=== PATIENT | male | born 1970 | race Caucasian/White ===

== ENCOUNTER 2018-01-23 11:01 | Emergency (ER) | payer BC ==
--- NOTE | 2018-01-23 14:09 | ER ---
Nurse's Notes [facility] Name: Mino Torres Age: 47 yrs Sex: Male : 1970 Arrival Date: 01/23/2018 Time: 11:05 Bed Waiting Private MD: Karthik Messina Diagnosis: Presentation: 01/23 11:26 Presenting complaint: Patient states: "my whole abdomen feel bloated and my last normal aa5 bowel movement was about 3 days ago". Pt reports nausea, denies vomiting. Transition of care: patient was not received from another setting of care. Onset of symptoms was January 2018. Risk Assessment: Do you want to hurt yourself or someone else? Patient reports no desire to harm self or others. Initial Sepsis Screen: Does the patient meet any 2 criteria? No. Patient's initial sepsis screen is negative. Does the patient have a suspected source of infection? No. Patient's initial sepsis screen is negative. Care prior to arrival: None. 11:26 Method Of Arrival: Ambulatory aa5 11:26 Acuity: ROOPA 3 aa5 Historical: - Allergies: 11:28 No Known Allergies; aa5 - PMHx: 11:28 Hyperlipidemia; aa5 - PSHx: 11:28 Cholecystectomy; deviated septum repair; L thumb; aa5 - Immunization history:: Adult Immunizations unknown. - Social history:: Smoking status: Patient/guardian denies using tobacco. - Ebola Screening: : No symptoms or risks identified at this time. Vital Signs: 11:28 BP 156 / 94; Pulse 95; Resp 18 S; Temp 100.1(O); Pulse Ox 98% on R/A; Weight 114.76 kg aa5 (R); Height 5 ft. 8 in. (172.72 cm) (R); Pain 7/10; 11:28 Body Mass Index 38.47 (114.76 kg, 172.72 cm) aa5 ED Course: 11:05 Patient arrived in ED. mr 11:06 Karthik Messina MD is Private Physician. mr 11:27 Triage completed. aa5 11:27 Arm band placed on. aa5 13:18 Patient's name was called from ER lobby. No response. aa5 13:40 Patient's name was called from ER lobby. No response. aa5 14:08 Jah Mccoy MD is Attending Physician. aa5 14:08 Patient's name was called from [facility]. No response. aa5 Administered Medications: No medications were administered Outcome: 14:08 Patient left the ED. aa5 Signatures: Cristina Austin SurendraPaula, RN RN aa5
== END 2018-01-23 14:08 | disposition left against medical advice (07) ==
LOC: ER 11:01
DX: Z53.21 Procedure and treatment not carried out due to patient leaving prior to being seen by health care provider (principal)
CPT/HCPCS: 99281

== ENCOUNTER 2022-02-08 12:00 | Observation (INO) | payer BC ==
--- OUTSIDE RECORDS SUMMARY | 2022-02-08 12:04 | XMS REPORT | Clinical Summary ---
:1970 Author Organization [facility] Address [address] [place] [address] Care Team Providers Name Role Phone Ela Soto MD Unavailable Allergies Active Allergy Reactions Severity Noted Date Comments Hydrocodone-Acetaminophen GI Intolerance Medium 11/21/2020 nausea Medications Medication Sig Dispensed Refills Start End Status Date Date sertraline Take 200 mg by 0 08/15/19 Acti ve (ZOLOFT) 100 mg mouth daily. 21 tablet levETIRAcetam Take 1 tablet 60 tablet 2 12/12/19 Ac tive (KEPPRA) 1000 mg (1,000 mg) by 21 tabletIndications: mouth every 12 Glioblastoma (twelve) hours. multiforme amLODIPine Take 1 tablet (5 30 tablet 2 12/12/19 Ac tive (NORVASC) 5 mg mg) by mouth 21 tabletIndications: daily. Glioblastoma multiforme dronabinol Take 1 capsule (5 90 capsule 0 12/12/19 Active (MARINOL) 5 mg mg) by mouth 3 21 capsuleIndications (three) times a : Glioblastoma day. multiforme, Other acute postoperative pain ondansetron Take 1 tablet 30 30 tablet 5 12/23/19 A ctive (ZOFRAN) 8 mg minutes prior to 21 tabletIndications: Temozolomide and Glioblastoma take 1 tablet multiforme every 8 hours as needed for nausea/vomiting. pantoprazole Take 1 tablet (40 30 tablet 2 12/29/19 Active (PROTONIX) 40 mg mg) by mouth 21 EC daily. tabletIndications: Glioblastoma multiforme, Headache traMADol (ULTRAM) Take 1 tablet (50 45 tablet 1 12/28/19 Active 50 mg mg) by mouth 21 tabletIndications: every 6 (six) Glioblastoma hours as needed multiforme, (headaches). Headache, Other acute postoperative pain methocarbamol Take 1 tablet 30 tablet 0 02/01/20 Ac tive (ROBAXIN) 500 mg (500 mg) by mouth 21 tabletIndications: every 8 (eight) Postoperative hours. wound infection butalbital-acetami Take 1 tablet by 30 tablet 0 02/01/20 Active nophen-caffeine mouth every 6 21 (FIORICET, ESGIC) (six) hours as 50 mg-325 mg-40 mg needed for tabletIndications: headaches. Postoperative wound infection levETIRAcetam Take 1 tablet 120 tablet 1 02/02/20 A ctive (KEPPRA) 1000 mg (1,000 mg) by 21 tabletIndications: mouth every 12 Glioblastoma (twelve) hours. multiforme sodium chloride Inject 10 mL (1 60 Syringe 0 02/29/20 Active (NS) 0.9% flush syringe) into 21 syringe 10 each lumen of mLIndications: central venous Postoperative catheter daily as wound infection directed. sodium chloride Inject 10 mL (1 28 Syringe 0 03/07/19 Active (NS) 0.9% flush syringe) into 22 syringe 10 each lumen of the mLIndications: catheter daily as Surgical site directed. infection <Subsequent> levoFLOXacin Take 1 tablet 30 tablet 0 03/06/19 Act binu (LEVAQUIN) 500 mg (500 mg) by mouth 22 tabletIndications: daily. Glioblastoma multiforme, Neutropenia, not otherwise specified gabapentin Take 3 capsules 270 capsule 0 01/30/20 E xpired (NEURONTIN) 300 mg (900 mg) by mouth 021 capsuleIndications 3 (three) times a : Other acute day for 30 days. postoperative pain linezolid (Zyvox) Take 1 tablet 32 tablet 0 02/01/20 600 mg (600 mg) by mouth tabletIndications: twice daily for Postoperative 16 days. wound infection sodium chloride Inject 10 mL (1 60 Syringe 1 02/01/20 Discontinued (NS) 0.9% flush syringe) into 021 (Reorder) syringe 10 each lumen of mLIndications: central venous Postoperative catheter daily as wound infection directed. oxacillin IV Infuse 1 eclipse pump (2000 mg) intravenously every 4 (four) hours as directed for 15 days. 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 apixaban (Eliquis Take 2 tablets by 74 tablet 0 02/16/2001/31 6 Discontinued DVT-PE Treat 30D mouth twice daily 021 (Reorder) Start) 5 mg (74 for 7 days, then tabs) take 1 tablet by tabletIndications: mouth twice daily Deep venous thereafter. thrombosis apixaban (Eliquis Take 2 tablets by 74 tablet 0 02/16/2003/03 0 Discontinued DVT-PE Treat 30D mouth twice daily 022 (Reorder) Start) 5 mg (74 for 7 days, then tabs) take 1 tablet by tabletIndications: mouth twice daily Deep venous thereafter. thrombosis sodium chloride Infuse 10 mL 228 each 0 02/20/20 D iscontinued (NS) 0.9% intravenously as (Ot her ) injection flush needed for line syringeIndications care. : Deep incisional surgical site infection <Subsequent>, Epidural abscess, Meningitis due to other specified cause, Infection due to Staphylococcus Coagulase negative oxacillin IV Infuse 2,000 mg 216 g 0 02/20/20 D iscontinued prescription (HOME intravenously 021 (Other ) USE)Indications: every 4 (four) Deep incisional hours for 18 surgical site days. infection <Subsequent>, Epidural abscess, Meningitis due to other specified cause, Infection due to Staphylococcus Coagulase negative oxacillin IV Infuse 1 eclipse pump (2000 mg) intravenously every 4 (four) hours for 14 days. 168 g 0 02/24/20 Discontinued prescription (HOME #18 eclipses 21 022 (Reorder) USE)Indications: Postoperative wound infection sodium chloride Inject 10 mL (1 28 Syringe 0 02/27/20 Discontinued (NS) 0.9% flush syringe) into 21 022 (Reorder) syringe 10 each lumen of the mLIndications: catheter daily as Surgical site directed. infection <Subsequent> valACYclovir Take 1 tablet 30 tablet 1 03/01/20 Exp ired (VALTREX) 500 mg (500 mg) by mouth 022 tabletIndications: daily for 30 Glioblastoma days. multiforme fluconazole Take 1 tablet 30 tablet 1 03/01/20 Expi red (DIFLUCAN) 200 mg (200 mg) by mouth 022 tabletIndications: daily for 30 Glioblastoma days. multiforme oxacillin IV Infuse 1 eclipse pump (2000 mg) intravenously every 4 (four) hours for 14 days. 168 g 0 03/07/19 prescription (HOME #18 eclipses 22 022 USE)Indications: Postoperative wound infection minocycline Take 1 capsule 60 capsule 0 03/08/19 Ex pired (MINOCIN) 100 mg (100 mg) by mouth 22 022 capsuleIndications twice daily for : Epidural abscess 30 days. apixaban (Eliquis Take 2 tablets by 74 tablet 0 03/13/1903/03 Discontinued DVT-PE Treat 30D mouth twice daily 22 022 (Therapy Start) 5 mg (74 for 7 days, then completed) tabs) take 1 tablet by tabletIndications: mouth twice daily Deep venous thereafter. thrombosis apixaban (Eliquis) Take 1 tablet (5 102 tablet 0 03/20/1912/02 5 mg mg) by mouth 22 022 tabletIndications: every 12 (twelve) Deep venous hours for 51 thrombosis days. 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 Overall he has done well with radiation and Temodar. He will finish on Friday. I did send Salome to his pharmacy to complete his course. He will be moving back to [place] and apparently has already arran migdalia follow-up at [facility]. We will be happy to provide assistance if he is back in [place] at any point. Other acute postoperative pain Encounters Date Type Specialty Care Team Description 03/20/2021 Hospital Encounter Vascular Access and Leo Bermudez MD Surgical site infection <Subsequent>; Procedures Rachel Coronado Encounter for a djustment and management of vascular access device JARAD Medrano 03/20/2021 Telemedicine Hematology Cooney Long-term use o f anticoagulants; Ray, Deep venous thr gisela Gresham MD 03/20/2021 Travel 03/16/2021 Telephone Infectious Diseases Yakelin Rico nt Parenteral Ashlyn Pyle RN Antimicrobial T herapy (OPAT) 03/16/2021 Refill Neuro-Oncology Mendez, Postoperative wound Tomas Nina RN infection 03/14/2021 Orders Only Infectious Diseases Cale Bermudez MD Surgic al site infection <Subsequent> (P rimary Dx) 03/12/2021 Refill Infectious Diseases Nas Deep umberto ous JARAD Lay thrombosis 03/12/2021 Telephone Infectious Diseases Nas, PICC/CVA D Removal JARAD Lay 03/09/2021 Hospital Encounter Kenny Mehta MD 03/09/2021 Refill Neurosurgery Kenny Mehta, Deep venous MD thrombosis 03/08/2021 Documentation Infectious Diseases Karla Rico Parenteral Ashlyn Pyle RN Antimicrobial T herapy (OPAT) 03/08/2021 Orders Only Infectious Diseases Cale Bermudez MD Epidur al abscess (Primary Dx) 03/08/2021 Telephone Infectious Diseases Nas, Appointm ent JARAD Lay 03/06/2021 Hospital Encounter Karin Torres MD 03/06/2021 Mobile Encounter Neuro-Oncology Debraa-Anne Quintanilla APN 03/06/2021 Orders Only Neuro-Oncology Orda-Socorro, Glioblastoma multiforme (Primary Dx); SOM Rodríguez Neutropenia, no t otherwise specified 03/06/2021 Refill Infectious Diseases Cale Bermudez MD Surgic al site infection <Subsequent>; Postoperative w ound infection 03/01/2021 Orders Only Neuro-Oncology Orda-Quintanilla, Anne, INSTRUMENTAL MUSIC TEACHER 03/01/2021 Documentation Infectious Diseases Jacky, Outpati ent Parenteral Ashlyn Pyle RN Antimicrobial T herapy (OPAT) 03/01/2021 Orders Only Neuro-Oncology Aleshia, Glioblastoma Radha N, multiforme (Carol gonzález PharmD Dx) 02/28/2021 Orders Only Neuro-Oncology Orda-Quintanilla, Postoperative wound Anne, INSTRUMENTAL MUSIC TEACHER infection 02/27/2021 Hospital Encounter Vascular Access and Coronado, Rachel En counter for Procedures M, RN adjustment and management of vascular access device 02/27/2021 Hospital Encounter Kenny Mehta MD 02/27/2021 Hospital Encounter Lab Orda-Quintanilla, Glioblast ambrose Anne, INSTRUMENTAL MUSIC TEACHER multiforme 02/27/2021 Orders Only Neuro-Oncology Sue Bryan NP 02/27/2021 Travel 02/26/2021 Telephone Infectious Diseases Nas, Medicati on Refill JARAD Lay 02/26/2021 Orders Only Infectious Diseases Jennifer Chirinos, Surgical site PA infection <Subsequent> (P rimary Dx) 02/26/2021 Orders Only Infectious Diseases Cordell Santos MD 02/23/2021 Hospital Encounter Karin Torres MD 02/23/2021 Refill Neuro-Oncology Orda-Quintanilla, Postoperative wound Anne, INSTRUMENTAL MUSIC TEACHER infection 02/21/2021 Refill Neurosurgery Manoj, Postoperative w ound STACY Guerin infection 02/19/2021 Documentation Aimee Nelson, JARAD 02/19/2021 Orders Only Infectious Diseases Bora Carlisle, Infect ion due to Staphylococcus Coagulase negative (Primary Dx); MD Karin Deep incisional surgical site infection <Subsequent>; Epidural absces s; Meningitis due to other specified cause; Postoperative w ound infection 02/16/2021 Hospital Encounter Truong Aranda NP 02/15/2021 Emergency Emergency Medicine Fracisco Billingsley umberto ous MD Dontrell thrombosis (Carol gonzález Dx) 02/15/2021 Telemedicine Infectious Diseases Cale Bermudez MD Epidur al abscess (Primary Dx); Postoperative i nfection <Initial>; Meningitis due to other specified cause; Deep incisional surgical site infection <Subsequent> 02/15/2021 Ancillary Procedure Radiology Kathe Villegas Swelli ng of upper arm MANUFACTURING TECH <Right side> 02/15/2021 Orders Only Hematology Eros Long-term use o f Ray, anticoagulants MD Mp (Primary Dx) 02/15/2021 Documentation Hematology Mp John MD 02/15/2021 Documentation Aimee Nelson RN 02/15/2021 Travel 02/14/2021 Hospital Encounter Vascular Access and Ronen Luu, Encounter for geophysical computer adjustment and management of vascular access device 02/14/2021 Ancillary Procedure Radiology Cortez Barrios, Postoper ative Noemi A, INSTRUMENTAL MUSIC TEACHER infection <Init ial> 02/14/2021 Hospital Encounter Lab Manoj, Lesion of brain Ameika, MANUFACTURING TECH 02/14/2021 Orders Only Neurosurgery Kathe Villegas, Swelling of u pper arm MANUFACTURING TECH <Right side> (P rimary Dx) 02/14/2021 Travel 02/13/2021 Orders Only Neuro-Oncology Orda-Quintanilla, Postoperative wound Anne, INSTRUMENTAL MUSIC TEACHER infection 02/13/2021 Refill Neurosurgery Kenny Mehta, Postoperative wound MD infection 02/12/2021 Follow-Up Infectious Diseases Cale Bermudez MD Postop erative infection <Init ial> 02/12/2021 Hospital Encounter Kenny Mehta MD 02/12/2021 Travel 02/12/2021 Refill Neurosurgery Manoj, Postoperative w ound Ameika, MANUFACTURING TECH infection 02/09/2021 Documentation Infectious Diseases Karla Rico ent Parenteral Ashlyn Pyle RN Antimicrobial T herapy (OPAT) 02/08/2021 Hospital Encounter Pain Medicine Richard Crump No Show MD after 02/08/2021 Immunizations Name Administration Dates Next Due Pfizer SARS-CoV-2 Vaccination (Purple Cap) 11/25/2020 Surgical History Surgery Date Site/Laterality Comments BRAIN SURGERY August2020 WA CRANIEC TREPHINE BONE FLP 12/07/2020 Head/Right Pro cedure: RIGHT TEMPORAL BRAIN TUMOR SUPRTENTOR CRANIOTOM Y FOR TUMOR RESECTION; Surge on: Kenny Mehta MD; Loca tion: MAIN OR; Service: YUMIKO ROSURGERY Medical devices from this surgery are in t he Medical Devices section. WA MICROSURG TQS REQ USE 12/07/2020 Right Procedu re: FLUORESCENCE OPERATING MICROSCOPE (COMFORT G UIDED RESECTION OF NEURAL TUMOR WITH OPERATING MICROS COPE; Surgeon: Kenny gonzalez MD; Location: MAIN O R; Service: NEUROSURGERY Medical devices from this surgery are in t he Medical Devices section. WA DIAGNOSTIC LUMBAR SPINAL 12/07/2020 Back/N/A Proc edure: DIAGNOSTIC PUNCTURE LUMBAR SPINAL PU NCTURE; Surgeon: Kenny gonzalez MD; Location: MAIN O R; Service: NEUROSURGERY Medical devices from this surgery are in t he Medical Devices section. WA STRTCTC CPTR ASSTD PX 12/07/2020 Right Procedu re: STEREOTACTIC CRANIAL INTRADURAL COMPUTER-ASSI STED CRANIAL INTRADURAL PROCE DURE; Surgeon: Kenny gonzalez MD; Location: MAIN O R; Service: NEUROSURGERY Medical devices from this surgery are in t Medical Devices section. WA DEBRIDEMENT SUBCUTANEOUS 01/09/2021 Right Proc edure: irrigation and TISSUE 20 SQ CM/< debridement of nonhealing surgical wound o f right scalp; Surgeon: Kenny Mehta MD; Loca tion: MAIN OR; Service: YUMIKO ROSURGERY Medical devices from this surgery are in t Medical Devices section. 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 airway pressure ventilatio n 2018 Gastric reflux 2002 Depressive disorder 2006 Anxiety 2006 Brain cancer 2020 Postoperative nausea and vomiting Family History Medical History Relation Name Comments Hepatitis Brother Relation Name Status Comments Brother Social History Tobacco Use Types Packs/Day Years Used Date Smoking Tobacco: Former Cigarettes 0 0 Smokeless Tobacco: Former Comments: 20 years ago Alcohol Use Standard Drinks/Week Comments Not Currently 0 (1 standard drink = 0.6 oz pure alcoho l) last drank 08/2016 Sex Assigned at Date Recorded Male 11/27/2020 8:09 AM CDT Job Start Date Occupation Industry Not on file Not on file Not on file Obstetrics History Last Filed Vital Signs Vital Sign Reading Time Taken Comments Blood Pressure 119/82 03/20/2021 12:14 PM DOUGHMAKER Pulse 64 03/20/2021 12:14 PM DOUGHMAKER Temperature 37 C (98.6 F) 02/15/2021 3:12 PM DOUGHMAKER Respiratory Rate 17 03/20/2021 12:14 PM DOUGHMAKER Oxygen Saturation 97% 03/20/2021 12:14 PM DOUGHMAKER Inhaled Oxygen Concentration - - Weight 87.7 kg (193 lb 5.5 oz) 02/15/2021 10:35 AM DOUGHMAKER Height 171.5 cm (5' 7.52") 02/14/2021 9:50 AM DOUGHMAKER Body Mass Index 29.82 02/14/2021 9:50 AM DOUGHMAKER Plan of Treatment Health Maintenance Due Date Last Done Comments COVID-19 Vaccination (2 - Pfizer risk series) 12/16/2020 Medical Devices Implanted Type Area Topstitcher Zigzag Device Shelf Model / Identifier Expiration Serial / Date Lot Patch Dura 3x3in Durepair Sub - Sn/A Implant Right: [employer] 04/30/2022 [id number] / Implanted: Qty: 1 on 12/07/2020 by Kenny Mehta MD at [facility] NG Cranial N/A / [id number] Patch Dura 3x3in Durepair Sub - [id number] Implant Right: [employer] 05/01/2023 [id number] / Implanted: Qty: 1 on 01/09/2021 by Kenny Mehta MD at [facility] Brain / [id number] Screw Matrixneuro 3mm Self Drilling Pkg 1 - [id number] Metalware Right: [employer] .[id number] / Implanted: Qty: 1 on 12/07/2020 by Kenny Mehta MD at [facility] NG Cranial / Ti Matrixneuro Screw Self-Dril Ling 4mm - [id number] Metalware Right: [employer] .[id number] / Implanted: Qty: 13 on 01/09/2021 by Diane Cristina MD a t [facility] Cranial / Duragen Plus 3in X 3in - [id number] Skin/Tissue Right: [employer] 06/01/2023 [id number] / Implanted: Qty: 1 on 12/07/2020 by Kenny Mehta MD at [facility] Brain LIFESCIENCES / SURG [id number] Procedures Procedure Name Priority Date/Time Associated Diagnosis Comme nts FRACTIONATED BILIRUBIN Routine 02/27/2021 8:39 Glioblastoma Re sults for this AM DOUGHMAKER multiforme procedure are i n the results section. TOTAL PROTEIN Routine 02/27/2021 8:39 Glioblastoma Results for this AM DOUGHMAKER multiforme procedure are i n the results section. ASPARTATE Routine 02/27/2021 8:39 Glioblastoma Results for this AMINOTRANSFERASE AM DOUGHMAKER multiforme procedure a re in the results section. ALANINE AMINOTRANSFERASE Routine 02/27/2021 8:39 Glioblastoma Results for this AM DOUGHMAKER multiforme procedure are i n the results section. ALKALINE PHOSPHATASE Routine 02/27/2021 8:39 Glioblastoma Resu lts for this AM DOUGHMAKER multiforme procedure are i n the results section. ALBUMIN LEVEL Routine 02/27/2021 8:39 Glioblastoma Results for this AM DOUGHMAKER multiforme procedure are i n the results section. CALCIUM LEVEL TOTAL Routine 02/27/2021 8:39 Glioblastoma Resul ts for this AM DOUGHMAKER multiforme procedure are i n the results section. .GLOMERULAR FILTRATION Routine 02/27/2021 8:39 Glioblastoma Re sults for this RATE AM DOUGHMAKER multiforme procedure are i n the results section. SERUM CREATININE Routine 02/27/2021 8:39 Glioblastoma Results for this AM DOUGHMAKER multiforme procedure are i n the results section. ELECTROLYTE PANEL Routine 02/27/2021 8:39 Glioblastoma Results for this AM DOUGHMAKER multiforme procedure are i n the results section. BLOOD UREA NITROGEN Routine 02/27/2021 8:39 Glioblastoma Resul ts for this AM DOUGHMAKER multiforme procedure are i n the results section. GLUCOSE LEVEL Routine 02/27/2021 8:39 Glioblastoma Results for this AM DOUGHMAKER multiforme procedure are i n the results section. MANUAL DIFFERENTIAL Routine 02/27/2021 8:39 Glioblastoma Resul ts for this AM DOUGHMAKER multiforme procedure are i n the results section. Results CBC Routine 02/27/2021 8:39 Glioblastoma Results for this AM DOUGHMAKER multiforme procedure are i n the results section. COMPREHENSIVE METABOLIC Routine 02/27/2021 8:39 Glioblastoma PANEL AM DOUGHMAKER multiforme COMPLETE BLOOD COUNT W/ Routine 02/27/2021 8:39 Glioblastoma DIFFERENTIAL AM DOUGHMAKER multiforme POC CHEM 8 Routine 02/15/2021 11:55 Results for this AM DOUGHMAKER procedure are i n the results section. POC VENOUS BLOOD GAS + Routine 02/15/2021 11:51 R esults for this LACTATE AM DOUGHMAKER procedure are i n the results section. MANUAL DIFFERENTIAL STAT 02/15/2021 11:42 Resu lts for this AM DOUGHMAKER procedure are i n the results section. Results CBC STAT 02/15/2021 11:42 Results for this AM DOUGHMAKER procedure are i n the results section. FRACTIONATED BILIRUBIN Now 02/15/2021 11:42 R esults for this AM DOUGHMAKER procedure are i n the results section. TOTAL PROTEIN Now 02/15/2021 11:42 Results fo r this AM DOUGHMAKER procedure are i n the results section. ASPARTATE Now 02/15/2021 11:42 Results for this AMINOTRANSFERASE AM DOUGHMAKER procedure a re in the results section. ALANINE AMINOTRANSFERASE Now 02/15/2021 11:42 Results for this AM DOUGHMAKER procedure are i n the results section. ALKALINE PHOSPHATASE Now 02/15/2021 11:42 Res ults for this AM DOUGHMAKER procedure are i n the results section. ALBUMIN LEVEL Now 02/15/2021 11:42 Results fo r this AM DOUGHMAKER procedure are i n the results section. CALCIUM LEVEL TOTAL Now 02/15/2021 11:42 Resu lts for this AM DOUGHMAKER procedure are i n the results section. .GLOMERULAR FILTRATION Now 02/15/2021 11:42 R esults for this RATE AM DOUGHMAKER procedure are i n the results section. SERUM CREATININE Now 02/15/2021 11:42 Results for this AM DOUGHMAKER procedure are i n the results section. ELECTROLYTE PANEL Now 02/15/2021 11:42 Result s for this AM DOUGHMAKER procedure are i n the results section. BLOOD UREA NITROGEN Now 02/15/2021 11:42 Resu lts for this AM DOUGHMAKER procedure are i n the results section. GLUCOSE LEVEL Now 02/15/2021 11:42 Results fo r this AM DOUGHMAKER procedure are i n the results section. APTT Now 02/15/2021 11:42 Results for this AM DOUGHMAKER procedure are i n the results section. PROTHROMBIN TIME Now 02/15/2021 11:42 Results for this AM DOUGHMAKER procedure are i n the results section. COMPLETE BLOOD COUNT W/ Now 02/15/2021 11:42 DIFFERENTIAL AM DOUGHMAKER PHOSPHORUS LEVEL Now 02/15/2021 11:42 Results for this AM DOUGHMAKER procedure are i n the results section. MAGNESIUM LEVEL Now 02/15/2021 11:42 Results for this AM DOUGHMAKER procedure are i n the results section. COMPREHENSIVE METABOLIC Now 02/15/2021 11:42 PANEL AM DOUGHMAKER COVID-19 (SARS-COV-2) Now 02/15/2021 11:42 Re sults for this ASYMPTOMATIC-LT AM DOUGHMAKER procedure ar e in the results section. US ARM VENOUS DOPPLER STAT 02/15/2021 9:35 Swelling of uppe r Results for this RIGHT AM DOUGHMAKER arm <Right side> procedure a re in the results section. CALCIUM IONIZED, VENOUS Routine 02/14/2021 12:26 Lesion of bra in Results for this PM DOUGHMAKER procedure are i n the results section. .GLOMERULAR FILTRATION Routine 02/14/2021 12:26 Lesion of brai n Results for this RATE PM DOUGHMAKER procedure are i n the results section. SERUM CREATININE Routine 02/14/2021 12:26 Lesion of brain Resu lts for this PM DOUGHMAKER procedure are i n the results section. ELECTROLYTE PANEL Routine 02/14/2021 12:26 Lesion of brain Res ults for this PM DOUGHMAKER procedure are i n the results section. BLOOD UREA NITROGEN Routine 02/14/2021 12:26 Lesion of brain R esults for this PM DOUGHMAKER procedure are i n the results section. GLUCOSE LEVEL Routine 02/14/2021 12:26 Lesion of brain Results for this PM DOUGHMAKER procedure are i n the results section. FRACTIONATED BILIRUBIN Routine 02/14/2021 12:26 Lesion of brai n Results for this PM DOUGHMAKER procedure are i n the results section. TOTAL PROTEIN Routine 02/14/2021 12:26 Lesion of brain Results for this PM DOUGHMAKER procedure are i n the results section. ASPARTATE Routine 02/14/2021 12:26 Lesion of brain Results for this AMINOTRANSFERASE PM DOUGHMAKER procedure a re in the results section. ALANINE AMINOTRANSFERASE Routine 02/14/2021 12:26 Lesion of br ain Results for this PM DOUGHMAKER procedure are i n the results section. ALKALINE PHOSPHATASE Routine 02/14/2021 12:26 Lesion of brain Results for this PM DOUGHMAKER procedure are i n the results section. ALBUMIN LEVEL Routine 02/14/2021 12:26 Lesion of brain Results for this PM DOUGHMAKER procedure are i n the results section. MANUAL DIFFERENTIAL Routine 02/14/2021 12:26 Lesion of brain R esults for this PM DOUGHMAKER procedure are i n the results section. Results CBC Routine 02/14/2021 12:26 Lesion of brain Results for this PM DOUGHMAKER procedure are i n the results section. BASIC METABOLIC PANEL, Routine 02/14/2021 12:26 Lesion of brai n CALCIUM IONIZED PM DOUGHMAKER HEPATIC FUNCTION PANEL Routine 02/14/2021 12:26 Lesion of brai n PM DOUGHMAKER COMPLETE BLOOD COUNT W/ Routine 02/14/2021 12:26 Lesion of bra in DIFFERENTIAL PM DOUGHMAKER MRI BRAIN W WO CONTRAST Routine 02/14/2021 10:36 Postoperative Results for this AM DOUGHMAKER infection <Initial> procedur e are in the results section. after 02/08/2021 Results .Serum Creatinine (02/27/2021 8:39 AM DOUGHMAKER)Only the most recent of3 resultswithin the time period is included. athologist Signature Creatinine 0.96 0.67 - 1.17 [facility] [facility] mg/dL DIAGNOSTIC CENTER Specimen Anatomical Collection Method Collection Time Receive d Time (Source) Location / / Volume Laterality Blood 02/27/2021 8:39 AM 8:50 DOUGHMAKER AM DOUGHMAKER Anne Vela APN LAB BLOOD ORDERABLES Performing Organization Address City/State/ZIP Code Phon e Number [facility] DIAGNOSTIC Unless otherwise noted, [place], [place] [address] CENTER all lab tests performed by: Division of Pathology and Laboratory Medicine [address] (ABNORMAL) .CBC (02/27/2021 8:39 AM DOUGHMAKER)Only the most recent of3 resultswithin the time period is included. Analysis Performed At Patho logist Time Signature WBC 1.7 (L) 4.0 - 11.0 [facility] K/uL DIAGNOSTIC CENTER RBC 4.29 (L) 4.50 - [facility] 6.00 M/uL DIAGNOSTIC CENTER Hgb 12.6 (L) 14.0 - [facility] 18.0 gm/dL DIAGNOSTIC CENTER Hct 38.7 (L) 40.0 - [facility] 54.0 % DIAGNOSTIC CENTER MCV 90 82 - 98 fL [facility] DIAGNOSTIC CENTER MCH 29.4 27.0 - [facility] 31.0 pg DIAGNOSTIC CENTER MCHC 32.6 31.0 - [facility] 36.0 gm/dL DIAGNOSTIC CENTER RDW-SD 42.2 35.1 - [facility] 46.3 fL DIAGNOSTIC CENTER RDW-CV 12.9 12.0 - [facility] 15.5 % DIAGNOSTIC CENTER Platelet count 233 140 - 440 [facility] K/uL DIAGNOSTIC CENTER MPV 8.9 4.0 - 10.4 [facility] DIAGNOSTIC CENTER INRBC 0.0 <=0.0 % [facility] Comment: The INRBC (instrument NRBC) value reflec ts the enumeration of nucleated red blood cells contained i n a 200uL sample of whole blood analyzed by the instrumen t. This value may differ from the NRBC value reported in a manual differential, which is based on a 100 cell differentia l. Specimen Anatomical Collection Method Collection Time Receive d Time (Source) Location / / Volume Laterality Blood 02/27/2021 8:39 AM 8:47 DOUGHMAKER AM DOUGHMAKER Anne Vela APN LAB BLOOD ORDERABLES Performing Organization Address City/State/ZIP Code Phon e Number [facility] DIAGNOSTIC Unless otherwise noted, [place], [place] [address] CENTER all lab tests performed by: Division of Pathology and Laboratory Medicine [facility]5 [facility] Glomerular Filtration Rate (02/27/2021 8:39 AM DOUGHMAKER)Only the most recent of3 resultswithin the time period is included. athologist Signature eGFR-AA 108 >=60 [place] [facility] mL/min/1.73 DIAGNOSTIC sq. m CENTER Comment: Normal eGFR: >= 60 mL/min/1.73 m2 Note: The eGFR is calculated using the C KD-EPI equation. The eGFR declines with age. eGFR <60 mL/min/1.73 m2 is considered as "decreased". This equation should only be used for patients 18 and older. According to the National Kidney Foundat ion's Kidney Disease Outcome Quality Initiative (KDOQI) classification and 2012 Kidney Disease Improving Global Outcomes (KDIGO) Clinical Practice Guideline, the stage of CKD should be categorized based on estimated GFR. Stage Description GFR mL/min/1. 73 m2 1 Normal or high GFR >=90 2 Mildly decreased GFR 60-89 3a Mildly to moderately decreased GFR 45-59 3b Moderately to severely decreased GFR 30-44 4 Severely decreased GFR 15-29 5 Kidney failure <15 eGFR-NEO 93 >=60 mL/min/1.73 sq. m [place] [facility] Comment: Normal eGFR: >= 60 mL/min/1.73 m2 Note: The eGFR is calculated using the C KD-EPI equation. The eGFR declines with age. eGFR <60 mL/min/1.73 m2 is considered as "decreased". This equation should only be used for patients 18 and older. According to the National Kidney Foundat ion's Kidney Disease Outcome Quality Initiative (KDOQI) classification and 2012 Kidney Disease Improving Global Outcomes (KDIGO) Clinical Practice Guideline, the stage of CKD should be categorized based on estimated GFR. Stage Description GFR mL/min/1. 73 m2 1 Normal or high GFR >=90 2 Mildly decreased GFR 60-89 3a Mildly to moderately decreased GFR 45-59 3b Moderately to severely decreased GFR 30-44 4 Severely decreased GFR 15-29 5 Kidney failure <15 Specimen Anatomical Collection Method Collection Time Receive d Time (Source) Location / / Volume Laterality Blood 02/27/2021 8:39 AM 8:50 DOUGHMAKER AM DOUGHMAKER Anne Vela APN LAB BLOOD ORDERABLES Performing Organization Address City/State/ZIP Code Phon e Number [place] [facility] Unless otherwise noted, [address] all lab tests performed by: Division of Pathology and Laboratory Medicine [address] [place] [address] Fractionated Bilirubin (02/27/2021 8:39 AM DOUGHMAKER)Only the most recent of3 results within the time period is included. athologist Signature Bili Total 0.3 <=1.2 mg/dL [place] [facility] Comment: Indocyanine Green (ICG) may cause falsel y elevated bilirubin results. Total and direct bilirubin must not be measured from samples containing indocyanine green. False elevation of total bilirubin can b e seen in patients with IgG concentrations above 28 g/L. Bili Direct <0.2 <=0.3 mg/dL [place] [facility] Comment: Indocyanine Green (ICG) may cau se falsely elevated bilirubin results. Total and direct bilirubin must not be measure d from samples containing indocyanine green. Bili Indirect See Note 0.0 - 0.9 mg/dL [place] [facility] Comment: Unable to calculate Indirect Bi lirubin result due to some parameters are outside reportable range Specimen Anatomical Collection Method Collection Time Receive d Time (Source) Location / / Volume Laterality Blood 02/27/2021 8:39 AM 8:50 DOUGHMAKER AM DOUGHMAKER Anne Vela APN LAB BLOOD ORDERABLES Performing Organization Address City/State/ZIP Code Phon e Number [facility] DIAGNOSTIC Unless otherwise noted, [place] [id number] [place] all lab tests performed by: Division of Pathology and Laboratory Medicine [address] (ABNORMAL) Differential (02/27/2021 8:39 AM DOUGHMAKER)Only the most recent of3 results within the time period is included. athologist Signature Neutrophil % 41.4 (L) 42.0 - [facility] 66.0 % DIAGNOSTIC CENTER Lymphocyte % 40.8 24.0 - [facility] 44.0 % DIAGNOSTIC CENTER Monocyte % 13.6 (H) 2.0 - 7.0 [facility] % DIAGNOSTIC CENTER Eosinophil % 3.0 1.0 - 4.0 [facility] % DIAGNOSTIC CENTER Basophil % 0.6 0.0 - 1.0 [facility] % DIAGNOSTIC CENTER IGRE % 0.6 (H) 0.0 - 0.4 [facility] % DIAGNOSTIC CENTER Comment: IGRE % count includes Metamyelo cytes, Myelocytes, and Promyelocytes. Neutrophil Abs 0.70 (L) 1.70 - 7.30 K/uL [facility] WILL [facility] Lymphocyte Abs 0.69 (L) 1.00 - 4.80 K/uL [place] MD [facility] Monocyte Abs 0.23 0.08 - 0.70 K/uL [place] [facility] Eosinophil Abs 0.05 0.04 - 0.40 K/uL [facility] Basophil Abs 0.01 0.00 - 0.10 K/uL [place] [facility] G[facility] DIAGNOSTIC [place] IG Abs 0.01 0.00 - 0.04 K/uL [place] MD ANNIE [facility] DIAGNOSTIC [place] Specimen Anatomical Collection Method Collection Time Receive d Time (Source) Location / / Volume Laterality Blood 02/27/2021 8:39 AM 8:47 DOUGHMAKER AM DOUGHMAKER Anne Vela APN LAB BLOOD ORDERABLES Performing Organization Address City/State/ZIP Code Phon e Number [facility] DIAGNOSTIC Unless otherwise noted, [address] all lab tests performed by: Division of Pathology and Laboratory Medicine [address] [place] [address] BUN (02/27/2021 8:39 AM DOUGHMAKER)Only the most recent of3 resultswithin the time period is included. athologist Signature BUN 7 6 - 23 [facility] mg/dL DIAGNOSTIC CENTER Specimen Anatomical Collection Method Collection Time Receive d Time (Source) Location / / Volume Laterality Blood 02/27/2021 8:39 AM 8:50 DOUGHMAKER AM DOUGHMAKER Anne Dumont-Quintanilla INSTRUMENTAL MUSIC TEACHER LAB BLOOD ORDERABLES Performing Organization Address City/[facility] Phon e Number [facility] DIAGNOSTIC Unless otherwise noted, [address] all lab tests performed by: Division of Pathology and Laboratory Medicine [address] [place] [address] ALT (02/27/2021 8:39 AM DOUGHMAKER)Only the most recent of3 resultswithin the time period is included. athologist [facility] ALT 17 <=41 U/L [facility] Specimen Anatomical Collection Method Collection Time Receive d Time (Source) Location / / Volume Laterality Blood 02/27/2021 8:39 AM 8:50 DOUGHMAKER AM DOUGHMAKER Anne Dumont-Quintanilla INSTRUMENTAL MUSIC TEACHER LAB BLOOD ORDERABLES Performing Organization Address City/[facility]/ZIP [facility] Phon e Number [facility] DIAGNOSTIC Unless otherwise noted, [address] all lab tests performed by: Division of Pathology and Laboratory Medicine [address] [place] [address] Aspartate Aminotransferase (02/27/2021 8:39 AM DOUGHMAKER)Only the most recent of3 resultswithin the time period is included. athologist Signature AST 17 <=40 U/L [facility] Specimen Anatomical Collection Method Collection Time Receive d Time (Source) Location / / Volume Laterality Blood 02/27/2021 8:39 AM 1 8:50 DOUGHMAKER AM DOUGHMAKER Anne Dumont-Quintanilla INSTRUMENTAL MUSIC TEACHER LAB BLOOD ORDERABLES Performing Organization Address City/[facility]/ZIP [facility] Phon e Number [facility] DIAGNOSTIC Unless otherwise noted, [address] all lab tests performed by: Division of Pathology and Laboratory Medicine [address] [place], [place] [address] Total Protein (02/27/2021 8:39 AM DOUGHMAKER)Only the most recent of3 resultswithin the time period is included. [facility] Total Protein 6.9 6.4 - 8.3 [facility] g/dL DIAGNOSTIC CENTER Specimen Anatomical Collection Method Collection Time Receive d Time (Source) Location / / Volume Laterality Blood 02/27/2021 8:39 AM 8:50 DOUGHMAKER AM DOUGHMAKER Anen Vela APN LAB BLOOD ORDERABLES Performing Organization Address City/[facility] Phon e Number [facility] DIAGNOSTIC Unless otherwise noted, [address] all lab tests performed by: Division of Pathology and Laboratory Medicine [address] [place], [place] [address] Alkaline Phosphatase (02/27/2021 8:39 AM DOUGHMAKER)Only the most recent of3 results within the time period is included. [facility] [place] Alk Phos 73 40 - 129 [facility] U/L DIAGNOSTIC CENTER Specimen Anatomical Collection Method Collection Time Receive d Time (Source) Location / / Volume Laterality Blood 02/27/2021 8:39 AM 8:50 DOUGHMAKER AM DOUGHMAKER Anne Vela APN LAB BLOOD ORDERABLES Performing Organization Address City/State/[facility] Phon e Number [facility] DIAGNOSTIC Unless otherwise noted, [place] [phone] [place] all lab tests performed by: Division of Pathology and Laboratory Medicine [facility]5 [place] [facility] Glucose Level (02/27/2021 8:39 AM DOUGHMAKER)Only the most recent of3 resultswithin the time period is included. [facility] Glucose Level 81 70 - 99 [facility] mg/dL DIAGNOSTIC CENTER Comment: Effective 09/27/15, the glucose reference intervals have been updated based on [place] [employer] guidelines (Standards of Medical Care in Diabetes 2016. Diabetes Care 2016; 39: S13-S22). Fasting blood glucose: Normal: 70-99 mg/dL Impaired fasting glucose (increased risk for diabetes or pre-diabetes): 100- 125 mg/dL Diabetes mellitus: >/=126 mg/dL Random blood glucose: Normal: 70-199 mg/dL Note: Random glucose >100 mg/dL is assoc iated with increased risk for diabetes Specimen Anatomical Collection Method Collection Time Receive d Time (Source) Location / / Volume Laterality Blood 02/27/2021 8:39 AM 8:50 DOUGHMAKER AM DOUGHMAKER Anne Ovallesuyen SOM LAB BLOOD ORDERABLES Performing Organization Address [facility] Phon e Number [facility] DIAGNOSTIC Unless otherwise noted, [address] all lab tests performed by: Division of Pathology and Laboratory Medicine [address] Calcium Level (02/27/2021 8:39 AM DOUGHMAKER)Only the most recent of2 resultswithin the time period is included. P athologist Signature Calcium Lvl 9.8 8.4 - 10.2 [facility] mg/dL [facility] Specimen Anatomical Collection Method Collection Time Receive d Time (Source) Location / / Volume Laterality Blood 02/27/2021 8:39 AM 8:50 DOUGHMAKER AM DOUGHMAKER Anne YadavQuintanilla INSTRUMENTAL MUSIC TEACHER LAB BLOOD ORDERABLES Performing Organization Address [facility] Phon e Number [facility] DIAGNOSTIC Unless otherwise noted, [address] all lab tests performed by: Division of Pathology and Laboratory Medicine [address] [facility] [facility] Albumin Level (02/27/2021 8:39 AM DOUGHMAKER)Only the most recent of3 resultswithin the time period is included. P athologist Signature Albumin Lvl 4.5 3.5 - 5.2 [facility] gm/dL [facility] Specimen Anatomical Collection Method Collection Time Receive d Time (Source) Location / / Volume Laterality Blood 02/27/2021 8:39 AM 8:50 DOUGHMAKER AM DOUGHMAKER Anne JuliaSlimeQuintanilla INSTRUMENTAL MUSIC TEACHER LAB BLOOD ORDERABLES Performing Organization Address City/[facility] Phon e Number [facility] DIAGNOSTIC Unless otherwise noted, [address] all lab tests performed by: Division of Pathology and Laboratory Medicine [address] Electrolyte Panel (02/27/2021 8:39 AM DOUGHMAKER)Only the most recent of3 resultswithin the time period is included. athologist Signature Sodium Lvl 140 136 - 145 [facility] mEq/L DIAGNOSTIC CENTER Potassium Lvl 4.4 3.5 - 5.1 [facility] mEq/L DIAGNOSTIC CENTER Chloride 105 98 - 107 [facility] mEq/L DIAGNOSTIC CENTER CO2 25 22 - 29 [facility] mEq/L DIAGNOSTIC CENTER Anion Gap 10 4 - 14 [facility] mEq/L DIAGNOSTIC CENTER Specimen Anatomical Collection Method Collection Time Receive d Time (Source) Location / / Volume Laterality Blood 02/27/2021 8:39 AM 8:50 DOUGHMAKER AM DOUGHMAKER Anne Vela APN LAB BLOOD ORDERABLES Performing Organization Address City/State/ZIP Code Phon e Number [facility] DIAGNOSTIC Unless otherwise noted, [place], [place] [address] CENTER all lab tests performed by: Division of Pathology and Laboratory Medicine [address] [facility] (ABNORMAL) POC Chem 8 without Hemoglobin and Hematocrit (02/15/2021 11:55 AM DOUGHMAKER) athologist Signature POC NA 141 138 - 146 [facility] mEq/L POC K 3.6 3.5 - 4.9 [facility] mEq/L Comment: Method description: The i-STAT is an nitish lyzer used for in vitro quantification of various analytes in whole blood. The device uses a single disposable cartridge which contains microfabricated sensors, a calibration solution, fluidics system, and a waste chamber. Each test cartridge contains ch emically sensitive biosensors on a silicon chip that are configured to perform specific tests. The microfabricated sensors measure analyte concentration by an electrochemical assay. POC CL 104 98 - 109 mEq/L [facility] POC VTCO2 26 24 - 29 mEq/L [facility] POC Anion Gap 16 10 - 20 mmol/L [facility] POC BUN <3 (L) 8 - 26 mg/dL [facility] POC Crea 0.9 0.6 - 1.3 mg/dL [facility] Comment: Medications, especially hydroxyurea or s upplements, such as ascorbate, can interfere with test results causing a falsely and significantly higher result than expected. If a problem is suspected with a patient's result, a sample should be sent to the laboratory for confirmatory testing. Method description: The i-STAT is an nitish lyzer used for in vitro quantification of various analytes in whole blood. The device uses a single disposable cartridge which contains microfabricated sensors, a calibration solution, fluidics system, and a waste chamber. Each test cartridge contains ch emically sensitive biosensors on a silicon chip that are configured to perform specific tests. The microfabricated sensors measure analyte concentration by an electrochemical assay. POC eGFR-AA 117 >=60 mL/min/1.73 m2 POC [facility] [place] Comment: Normal eGFR >= 60 mL/min/1.73 m2 The eGFR is calculated using the CKD-EPI equation. The eGFR declines with age. eGFR <60 mL/min/1.73 m2 is considered as "decreased" This equation should only be used for patients 18 and older. According to the National Kidney Foundat ion's Kidney Disease Outcome Quality Initiative (KDOQI) classification and 2012 Kidney Disease Improving Global Outcomes (KDIGO) Clinical Practice Guideline, the stage of CKD should be categorized based on estimated GFR. Stage Description GFR mL/min/1.73 m2 1 Kidney damage with normal or high GFR >=90 2 Kidney damage with mild decrease in GF R 60-89 3a Mild to moderate decrease in GFR 45-59 3b Moderate to severe decrease in GFR 30-44 4 Severe decrease in GFR 15-29 5 Kidney failure <15 (or dialysis) POC eGFR-NEO 101 >=60 mL/min/1.73 m2 POC [facility] Comment: Normal eGFR >= 60 mL/min/1.73 m2 The eGFR is calculated using the CKD-EPI equation. The eGFR declines with age. eGFR <60 mL/min/1.73 m2 is considered as "decreased" This equation should only be used for patients 18 and older. According to the National Kidney Foundat ion's Kidney Disease Outcome Quality Initiative (KDOQI) classification and 2012 Kidney Disease Improving Global Outcomes (KDIGO) Clinical Practice Guideline, the stage of CKD should be categorized based on estimated GFR. Stage Description GFR mL/min/1.73 m2 1 Kidney damage with normal or high GFR >=90 2 Kidney damage with mild decrease in GF R 60-89 3a Mild to moderate decrease in GFR 45-59 3b Moderate to severe decrease in GFR 30-44 4 Severe decrease in GFR 15-29 5 Kidney failure <15 (or dialysis) POC Glucose 73 70 - 99 mg/dL [facility] POC Ion Ca 1.24 1.12 - 1.32 mmol/L [facility]OC [facility] POC Sample Type Venous POC [facility] POC Clean Dev Yes POC [facility] Performing Lab [facility] POC [facility]EL[facility] R Comment: [facility] Clinical Lab, [address] [place] [id number]; Lab Direct or: Janet Adame MD Specimen Anatomical Collection Method Collection Time Receive d Time (Source) Location / / Volume Laterality Blood 02/15/2021 11:55 02/15/2021 AM DOUGHMAKER 11:55 AM DOUGHMAKER Fracisco Billingsley MD POINT OF CARE TEST ORDERABLE S Performing Organization Address City/State/ZIP Code Phon e Number POC [facility] POC VBG+Lac (02/15/2021 11:51 AM DOUGHMAKER) P athologist Signature POC VB pH 7.36 7.31 - 7.41 [facility] POC VB pCO2 48 41 - 51 [facility] mmHg POC VB pO2 24 mmHg POC [facility] POC VB TCO2 29 24 - 29 [facility] mEq/L POC VB Bicarb 27 23 - 28 [facility] mmol/L POC VB Base Ex 1 -2 - 3 [facility] mmol/L POC VB O2 Sat 40 % POC [facility] POC VB LAC 1.6 0.9 - 1.7 [facility] mmol/L Comment: Method description: The i-STAT is an nitish lyzer used for in vitro quantification of various analytes in whole blood. The device uses a single disposable cartridge which contains microfabricated sensors, a calibration solution, fluidics system, and a waste chamber. Each test cartridge contains ch emically sensitive biosensors on a silicon chip that are configured to perform specific tests. The microfabricated sensors measure analyte concentration by an electrochemical assay. POC Sample Type Venous POC [facility] POC Clean Dev Yes POC [facility] Performing Lab [facility] POC TELCO R Comment: [facility] Clinical Lab, [address] [place] [id number]; Lab Direct or: Janet Adame MD Specimen Anatomical Collection Method Collection Time Receive d Time (Source) Location / / Volume Laterality Blood 02/15/2021 11:51 02/15/2021 AM DOUGHMAKER 11:51 AM DOUGHMAKER Fracisco Billingsley MD POCT ORDERABLES - DEVICE Performing Organization Address City/State/ZIP Code Phon e Number POC [facility] COVID-19 (SARS-CoV-2)Asymptomatic-LT (02/15/2021 11:42 AM DOUGHMAKER) [facility] Method Time Signature COVID19 Not Detected Not Detected FRANCINE FITZGERALD (SARS-CoV-2) [facility] COVID19 SARS Inpatient [place] Indication Admission [facility] Covid 19 See Note [place] Comment [facility] Comment: The lisa SARS-CoV-2 nucleic acid test f or use on the lisa Estephania System is a real-time RT-PCR assay intended for the qualitative detection of SARS-CoV-2 (COVID-19) viral RNA in nasopharyngeal swabs from either individuals suspected of COVID-1 9 by their healthcare provider or from any individu al, including individuals without symptoms or other reasons to suspect COVID-19. A fact sheet for patients provided by the marketing sales supervisor ([employer]) can be reviewed at: https://www.fda.gov/media/398955/downloa d. A fact sheet for Health Care providers is provided by the marketing sales supervisor ([employer]) and can be reviewed at: https://www.fda.gov/media/866962/download Results must be interpreted within the c ontext of all relevant clinical and laboratory findings and should not form the sole basis for a diagnosis or treatment decision. Positive results do not rule out bacterial infection or co- infection with other viruses. Negative results do not preclud e SARS-CoV-2 infection and must be combined with clinical observations, patient history, and/or epidemiological information. This assay has been authorized by the A for use only under Emergency Use Authorization (EUA) in laboratories that have been CLIA-certified to perform moderate-complexity and high-complexity tests. The Microbiology Laboratory at [facility], CLIA Accreditation #[id number] a [facility] Accreditation #[id number], verified the performance characteristics of this assay. Internal controls are used to monitor all stages of the test process. Specimen (Source) Anatomical Collection Method Collection Time Re ceived Time Location / / Volume Laterality Nasopharyngeal Swab 02/15/2021 11:42 12/08/2020 AM DOUGHMAKER 12:15 PM DOUGHMAKER Aidan Clark MD MICROBIOLOGY - GENERAL ORDER BEN Performing Organization Address City/State/ZIP Code Phon e Number [facility] CANCER Unless otherwise noted, [address] all lab tests performed by: Division of Pathology and Laboratory Medicine [address] aPTT (02/15/2021 11:42 AM DOUGHMAKER) P athologist Signature aPTT 32.7 24.7 - 36.8 [facility] Specimen Anatomical Collection Method Collection Time Receive d Time (Source) Location / / Volume Laterality Blood 02/15/2021 11:42 02/15/2021 AM DOUGHMAKER 12:05 PM DOUGHMAKER Aidan Clark MD LAB BLOOD ORDERABLES Performing Organization Address City/[facility]/ZIP Code Phon e Number [facility] CANCER Unless otherwise noted, [address] all lab tests performed by: Division of Pathology and Laboratory Medicine [address] Prothrombin Time with INR (02/15/2021 11:42 AM DOUGHMAKER) P athologist Signature PT 13.3 11.5 - 13.9 [facility] INR 1.08 0.90 - 1.10 [facility] Specimen Anatomical Collection Method Collection Time Receive d Time (Source) Location / / Volume Laterality Blood 02/15/2021 11:42 02/15/2021 AM DOUGHMAKER 12:05 PM DOUGHMAKER Aidan Clark MD LAB BLOOD ORDERABLES Performing Organization Address City/[facility]/ZIP Code Phon e Number [facility] CANCER Unless otherwise noted, [address] all lab tests performed by: Division of Pathology and Laboratory Medicine [address] Phosphorus Level (02/15/2021 11:42 AM DOUGHMAKER) P athologist Signature Phosphorus 3.6 2.5 - 4.5 [facility] mg/dL [facility] Specimen Anatomical Collection Method Collection Time Receive d Time (Source) Location / / Volume Laterality Blood 02/15/2021 11:42 02/15/2021 AM DOUGHMAKER 12:09 PM DOUGHMAKER Aidan Clark MD LAB BLOOD ORDERABLES Performing Organization Address City/[facility]/ZIP Code Phon e Number [facility] Unless otherwise noted, [place] [address] CENTER all lab tests performed by: Division of Pathology and Laboratory Medicine [address] Magnesium Level (02/15/2021 11:42 AM DOUGHMAKER) P athologist Signature Magnesium 2.1 1.6 - 2.6 [facility] mg/dL [facility] Specimen Anatomical Collection Method Collection Time Receive d Time (Source) Location / / Volume Laterality Blood 02/15/2021 11:42 02/15/2021 AM DOUGHMAKER 12:09 PM DOUGHMAKER Aidan Clark MD LAB BLOOD ORDERABLES Performing Organization Address City/State/ZIP Code Phon e Number [facility] Unless otherwise noted, [place] [address] CENTER all lab tests performed by: Division of Pathology and Laboratory Medicine [address] US Arm Venous Doppler Right (02/15/2021 9:35 AM DOUGHMAKER) Anatomical Region Laterality Modality Arm, Extremity Ultrasound Specimen (Source) Anatomical Collection Method Collection Time Re ceived Time Location / / Volume Laterality 02/15/2021 9:38 AM DOUGHMAKER Impressions 02/15/2021 10:33 AM DOUGHMAKER Occlusive thrombosis is present within the right subclavian, axillary, and basilic veins along the PICC. Critical finding(s) was/were discussed w darshan Aranda APRN via telephone by fellow Oleg Tejeda MD on 02/15/2021 9:52 AM. The patient was sent to the [facility] as per clinician's request. I personally reviewed these image(s) giuliano giron with the resident's/fellow's interpretations, certify that if a procedure was performed I was physically present, and agree with the final report. Narrative 02/15/2021 10:33 AM DOUGHMAKER FULL RESULT: Examination: US ARM VENOUS DOPPLER RIGHT , 02/15/2021 9:35 AM Clinical History: Swelling of right uppe r arm Indication: Arm/Neck Swelling, PICC Line , CVC Line, Pain Comparison: None available. Technique: Grayscale and color/spectral Doppler ultrasound of the right upper extremity veins was performed. Findings: There is occlusive thrombosis within the right subclavian, axillary, and basilic veins along the PICC. The right internal jugular, proximal inn ominate, brachial and cephalic veins show phasic color flow and are patent. Procedure Note Emerald Reardon MD - 02/15/2021Formatti ng of this note might be different from the original. FULL RESULT: Examination: US ARM VENOUS DOPPLER RIGHT , 02/15/2021 9:35 AM Clinical History: Swelling of right uppe r arm Indication: Arm/Neck Swelling, PICC Line , CVC Line, Pain Comparison: None available. Technique: Grayscale and color/spectral Doppler ultrasound of the right upper extremity veins was performed. Findings: There is occlusive thrombosis within the right subclavian, axillary, and basilic veins along the PICC. The right internal jugular, proximal inn ominate, brachial and cephalic veins show phasic color flow and are patent. 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 Critical finding(s) was/were discussed w darshan Aranda APRN via telephone by fellow Oleg Tejeda MD on 02/15/2021 9:52 AM. The patient was sent to the [facility] as per clinician's request. I personally reviewed these image(s) giuliano giron with the resident's/fellow's interpretations, certify that if a procedure was performed I was physically present, and agree with the final report. Kathe Villegas NP IMG US ORDERABLES Calcium Ionized, Venous (02/14/2021 12:26 PM DOUGHMAKER) P athologist Signature V Ion Ca 1.18 1.15 - 1.29 [facility] mmol/L [facility] Specimen Anatomical Collection Method Collection Time Receive d Time (Source) Location / / Volume Laterality Blood 02/14/2021 12:26 02/14/2021 PM DOUGHMAKER 12:36 PM DOUGHMAKER Narrative [facility] - 12:42 PM DOUGHMAKER This lab cannot be scheduled at the following locations due to collection/proccessing restrictions: [place] - REG DIAG LAB CTR [place] - REGSL DIAG LAB CTR [place] - REGL DIAG LAB CTR [facility] [place] DAIG LAB CTR [facility] DI DIAG LAB CTR [place] [facility] DI[facility] LAB CTR [place] Aranda NP LAB BLOOD ORDERABLES Performing Organization Address City/State/ZIP Code Phon e Number [facility] Unless otherwise noted, [address] all lab tests performed by: Division of Pathology and Laboratory Medicine [address] [facility] MRI BRAIN W WO CONTRAST (02/14/2021 10:36 AM DOUGHMAKER) Anatomical Region Laterality Modality Head Magnetic Resonance Specimen (Source) Anatomical Collection Method Collection Time Re ceived Time Location / / Volume Laterality 02/14/2021 1:06 PM DOUGHMAKER Impressions 02/14/2021 1:27 PM DOUGHMAKER 1. Improving postsurgical changes. There is significant decrease in the extracranial subgaleal fluid collection. The intracranial extra-axial fluid collection is stable to minimally decrease in size. 2. The enhancement around the resection cavity in the right posterior temporal occipital lobe is minimally more prominent likely treatment related. The surrounding T2 FLAIR hyperintensity is minimally more extensive. Narrative 02/14/2021 1:27 PM DOUGHMAKER Examination: MRI BRAIN W WO CONTRAST on 02/14/2021 10:36 AM Clinical History: Postoperative infectio n <Initial>. Indication: Not for stroke, trauma, head ache, sinusitis, or syncope, evaluate for clearance of infection after 4 weeks of antimicrobial therapy. Comparison: 01/21/2021, 01/17/2021, 12/08 Technique: MRI of the brain was obtained without and with contrast as per departmental protocol. Findings: Postsurgical changes related t o prior right temporoparietal craniotomy are noted. There has been interval significant decrease in size of previously noted extracranial subgaleal fluid collecti on. Minimal residual fluid collection is noted best seen on series 12 image 14. Intracranially the extra-axial fluid collection, is stable to minimally decreased in size. Pachymeningeal enhancement is again note d. The underlying resection cavity in the r ight posterior temporal occipital lobe appears stable. There is minimally more marginal enhancement without nodularity likely postoperative. Surrounding T2 and FL AIR hyperintensity is minimally more ext ensive especially posteriorly annotated on series 13 image 16 as compared to prior study series 7 image 18. The ventricles are stable in size and wi thin the midline. Procedure Note Wilfredo Nicole MD - 02/14/2021 Examination: MRI BRAIN W WO CONTRAST on 02/14/2021 10:36 AM Clinical History: Postoperative infectio n <Initial>. Indication: Not for stroke, trauma, head ache, sinusitis, or syncope, evaluate for clearance of infection after 4 weeks of antimicrobial therapy. Comparison: 01/21/2021, 01/17/2021, 12/08 Technique: MRI of the brain was obtained without and with contrast as per departmental protocol. Findings: Postsurgical changes related t o prior right temporoparietal craniotomy are noted. There has been interval significant decrease in size of previously noted extracranial subgaleal fluid collection. Minimal residual fluid collection is noted best seen on series 12 image 14. Intracranially the extra-axial fluid collection, is stable to minimally decreased in size. Pachymeningeal enhancement is again note d. The underlying resection cavity in the r ight posterior temporal occipital lobe appears stable. There is minimally more marginal enhancement without nodularity likely postoperative. Surrounding T2 and FLAIR hyperintensity is minimally more extensive especially p osteriorly annotated on series 13 image 16 as compared to prior study series 7 image 18. The ventricles are stable in size and wi thin the midline. IMPRESSION: 1. Improving postsurgical changes. There is significant decrease in the extracranial subgaleal fluid collection. The intracranial extra-axial fluid collection is stable to minimally decrease in size. 2. The enhancement around the resection cavity in the right posterior temporal occipital lobe is minimally more prominent likely treatment related. The surrounding T2 FLAIR hyperintensity is minimally more extensive. Noemi Mejia APN [facility] MRI ORDERABLES after 02/08/2021 Advance Directives Type Date Recorded Patient Plan Rep Explanati on Advance Directives: 01/10/2021 Directive to Physicians Living Will and Family or Surrogates-[place] martínez Will Advance Directives: 01/10/2021 Medical Chris r of Project Mgr Medical Power of Project Mgr Code Status Date Activated Date Inactivated Comments Full Code 01/09/2021 10:55 PM 02/01/2021 3:45 PM Code Status Date Activated Date Inactivated Comments Full Code 01/09/2021 8:55 AM 01/09/2021 10:54 PM Full Code 12/26/2020 12:00 AM 12/27/2020 6:20 PM Full Code 12/07/2020 8:26 PM 12/11/2020 2:47 PM Care Teams Corporate Planner Relationship Specialty Start Date End Date Ela Soto MD PCP - External Referring Neurosurgery 10/02/20 [address] [facility] [address] [place] [id number]
--- OUTSIDE RECORDS SUMMARY | 2022-02-08 12:07 | XMS REPORT | Continuity of Care Document ---
:1970 Author Organization [facility] t Address [address] [place] [address] Care Team Providers Name Role Phone HCACORTA FRAZIER JR Primary Care Physician Unavailable SYSTEM, PROVIDER NOT IN Attending Clinician Unavailable JORDAN PRINCE Attending Clinician Unavailable JORDAN PRINCE Attending Clinician Unavailable IGOR DORMAN Attending Clinician Unavailable Jordan Prince MD Attending Clinician Dandy BRYANPIgor Attending Clinician Doug Lee MD [facility] Attending Clinician Unavailable 2, [facility] Attending Clinician Unavailable Doctor Unassigned, [place] Attending Clinician Unavailable Nurse, [facility] Attending Clinician Unavailable Jose Ragsdale MD Attending Clinician CARMINE HERRERA Attending Clinician Unavailable Carmine Herrera MD Attending Clinician Bety Silva MD Attending Clinician Rachel Barron RN Attending Clinician Unavailable BETY SILVA Attending Clinician Unavailable MP JOHN Attending Clinician Unavailable Mp John MD Attending Clinician [phone] Jacky ABRAHAM, Ashlyn Pyle Attending Clinician Unavailable Tomas Mendez RN Attending Clinician Unavailable Nas ABRAHAM, Rosanne Attending Clinician Kenny Mehta MD Attending Clinician KENNY MEHTA Attending Clinician Unavailable Frederic Carlisle MD, Kyung Attending Clinician [phone] KYUNG HOYT Attending Clinician Unavailable Igor Vela APN Attending Clinician Aleshiadarshan Maldonado, Radha Hoffman Attending Clinician [phone] RACHEL BARRON Attending Clinician Unavailable IGOR LEE Attending Clinician Unavailable Sue Bryan NP Attending Clinician Jennifer Kwon Attending Clinician Cordell Santos MD Attending Clinician Truong Evans NP Attending Clinician Aimee Nelson RN Attending Clinician TRUONG EVANS Attending Clinician Unavailable TAMAR BILLINGSLEY Attending Clinician Unavailable Analilia FITZGERALD, Tamar Jon Attending Clinician Joy Cazares NP Attending Clinician JOY CAZARES Attending Clinician Unavailable RONEN SIMS Attending Clinician Unavailable Ronen Sims RN Attending Clinician Unavailable Noemi Mejia APN Attending Clinician NOEMI MEJIA Attending Clinician Unavailable FRIEDA MARTÍNEZ Attending Clinician Unavailable CAMERON BALL Attending Clinician Unavailable Cameron Ball MD Attending Clinician RANDALL GONZALEZ Attending Clinician Unavailable IBAN MORSE Attending Clinician Unavailable YOSELIN PUGA I Attending Clinician Unavailable CONNIE MARTIN Attending Clinician Unavailable WILLIAMS HERMAN Attending Clinician Unavailable ROMELIA FLORIAN Attending Clinician Unavailable SERA SORIANO Attending Clinician Unavailable JIM HARDIN Attending Clinician Unavailable IGOR DORMAN Admitting Clinician Unavailable KENNY MEHTA Admitting Clinician Unavailable PUDUVALLI, CONNIE Admitting Clinician Unavailable Payers Payer Name Policy Type Policy Number Effective Date Expiration Date S yaa HIM BCBS BLUE [id number] 2021 ADVANTAGE HMO 00:00:00 BCBS PPO POS OUT [id number] 2020 OF STATE GENERIC 00:00:00 Problems Condition Condition Condition Status Onset Resolution Last Treating Co mments Source Name Details Category Date Date Treatment Clinician Date Malignant Malignant Disease Active Uni vers neoplasm neoplasm 3-08 ity of of of 00:00: [place] overlappin overlappin 00 Me dical g sites of g sites of Br anch brain brain GBM GBM Disease Active Overview: Univer s (glioblast (glioblast -19 Formattin ity of ambrose ambrose 00:00: g of this [place] multiforme multiforme 00 note Me dical ) ) might be Branch different from the original. 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 08/02/2020 [place]-Surger y Surgeon: Dr. Gregory parietal craniotom y for tumor resection 08/02/2020 DX-Lab/Pa th/Flow Cytometry [facility] review of Outside Pathology GLIOBLAST AMBROSE, IDH-WILDT YPE WHO GRADE 4IDH1/IDH 2 STATUS (Argelia sequencin g): NEGATIVE for mutation 1p/19q status (FISH): NEGATIVE for codeletio nMGMTp status (msPCR): NEGATIVE for promoter methylati on09/13/19 - 10/23/2020 [place]-Radiat ion Therapy Received radiation with concurren t Temozolom chelsea (160mg).N ote: For first week, took higher than intended dose with no immediate complicat ion.2020 Initial [facility] Visit: Recurrent disease Transitio brandon to [facility] after moving back to [place], with progressi on seen on MRI 11/20/20 Single Single Disease Active 2020-03 Univers episode of episode of 1-20 it y of major major 00:00: [place] depression depression 00 MD in full in full [facility] remission remission n Cancer Center Non-healin Non-healin Disease Active 2020-03 U nivers g surgical g surgical 03-11 it y of wound wound 00:00: [place] 00 MD Saskia hoffman [facility] Postoperat Postoperat Disease Active 2020-03 Overview : Univers binu wound binu wound 03-11 Formattin i ty of infection infection 00:00: g of this [place] 00 note might be Andceceo different n from the Cancer original. 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 Center Last Assessmen t & Plan: Formattin g of this note might be different from the original. Overall he has done well with radiation and Temodar. He will finish on Friday. I did send Temodar to his pharmacy to complete his course. He will be moving back to [place] and apparentl y has already arranged follow-up at [facility]. We will be happy to provide assistanc e if he is back in [place] at any point. Other Other Disease Active Univers acute acute ity of [place]oper[place]operat [place] binu pain binu pain MD Saskia hoffman [facility] Allergies, Adverse Reactions, Alerts Allergy Allergy Status Severity Reaction(s) Onset Inactive Treating Comm ents Source Name Type Date Date Clinician HYDROCOD DRUG Active Med N/V Univers ONE-ACET 11-21 ity of AMINOPHE 00:00: [place] N 00 Medical Branch Hydrocod Propensi Active GI nausea Univer s one-Acet ty to Intolerance 11-21 ity of aminophe adverse 00:00: [place] n reaction 00 MD mirella hoffman [facility] HYDROCOD DRUG Active Med Nausea MD ONE-ACET 11-21 Anderso AMINOPHE 00:00: n N 00 Family History Family Member Diagnosis Comments Start Date Stop Date Source Natural brother Hepatitis [facility] [place] [facility] Social History Social Habit Start Date Stop Date Quantity Comments Source History of Current smoker [place] of tobacco use Elke Dacosta [facility] Exposure to 2021-12-28 2022-01-[address] [facility] SARS-CoV-2 00:00:00 08:56:00 [facility] (event) Branch Alcohol intake 2021-01-18 2021-01-18 Ex-drinker University of 00:00:00 00:00:00 (finding) [place] MD Antonio chang [facility] Alcohol Comment 2021-01-18 2021-01-18 last drank 08/2016 Un iversity of 00:00:00 00:00:00 Elke chang [facility] Cigarette 2020-12-07 2020-12-07 University of pack-years 00:00:00 00:00:00 Elke chang [facility] Tobacco use and 2020-12-07 2020-12-07 Former smokeless Uni versity of exposure 00:00:00 00:00:00 tobacco user Elke Branham [facility] Tobacco Comment 2020-12-07 2020-12-07 20 years ago Univers ity of 00:00:00 00:00:00 Elke chang [facility] Sex [birth year] At [birth year] Universit y of 00:00:00 00:00:00 [facility] Smoking Status Start Date Stop Date Source Tobacco smoking University of [place] consumption unknown Medical Bran ch Ex-smoker 2020-12-07 00:00:00 2020-12-07 [place] o f Elke FITZGERALD 00:00:00 [facility] Medications Ordered Filled Start Stop Current Ordering Indication Dosage Frequency Signature Comments Components Source Medication Medication Date Date Medication? Clinician (SIG) Name Name gadoteridol 2021-03- No [id number] .2mL/kg 0.2 mL/kg, Univers (PROHANCE-1 012-25 Intravenou i ty of 5 mL) 13:45: 13:42 s, ONCE, 1 [place] injection 00 :00 dose, On Medica l 0.2 mL/kg [facility] Branch 12/25/21 at 0845, Routine proCHLORper Yes [id number] 10mg Take 1 Univers azine 7-19 tablet by ity of (COMPAZINE) 00:00: mouth [place] 10 mg 00 every 6 Medical tablet (six) Branch hours as needed for N/V unresponsi ve to Ondansetro n. proCHLORper 2-0 Yes [id number] 10mg Take 1 Univers azine 7-19 tablet by ity of (COMPAZINE) 00:00: mouth [place] 10 mg 00 every 6 Medical tablet (six) Branch hours as needed for N/V unresponsi ve to Ondansetro n. proCHLORper 2-0 Yes [id number] 10mg Take 1 Univers azine 7-19 tablet by ity of (COMPAZINE) 00:00: mouth [place] 10 mg 00 every 6 Medical tablet (six) Branch hours as needed for N/V unresponsi ve to Ondansetro n. proCHLORper 2-0 Yes [id number] 10mg Take 1 Univers azine 7-19 tablet by ity of (COMPAZINE) 00:00: mouth [place] 10 mg 00 every 6 Medical tablet (six) Branch hours as needed for N/V unresponsi ve to Ondansetro n. gabapentin 2-0 Yes 300mg Take 300 Un jack 300 mg 3-08 mg by ity of capsule 10:17: mouth 3 [place] (three) Medical times Branch daily. ascorbic 2022-0 Yes 500mg Take 500 Univ ers acid, 3-08 mg by ity of vitamin C, 10:17: mouth [place] (VITAMIN C) 05 daily. Medica l 500 mg Branch tablet gabapentin 2-0 Yes 300mg Take 300 Un jack 300 mg 3-08 mg by ity of capsule 10:17: mouth 3 [place] 05 (three) Medical times Branch daily. ascorbic 2022-0 Yes 500mg Take 500 Univ ers acid, 3-08 mg by ity of vitamin C, 10:17: mouth [place] (VITAMIN C) 05 daily. Medica l 500 mg Branch tablet gabapentin 2022-0 Yes 300mg Take 300 Un jack 300 mg 3-08 mg by ity of capsule 10:17: mouth 3 [place] 05 (three) Medical times Branch daily. ascorbic 2022-0 Yes 500mg Take 500 Univ ers acid, 3-08 mg by ity of vitamin C, 10:17: mouth [place] (VITAMIN C) 05 daily. Medica l 500 mg Branch tablet gabapentin Yes 300mg Take 300 Un jack 300 mg 3-08 mg by ity of capsule 10:17: mouth 3 [place] 05 (three) Medical times Branch daily. ascorbic Yes 500mg Take 500 Univ ers acid, 3-08 mg by ity of vitamin C, 10:17: mouth [place] (VITAMIN C) 05 daily. Medica l 500 mg Branch tablet ferrous Yes 325mg Take 325 Unive rs sulfate 1-19 mg by ity of (IRON) 325 13:05: mouth [place] mg (65 mg 32 daily. Medical iron) Branch tablet ferrous Yes 325mg Take 325 Unive rs sulfate 1-19 mg by ity of (IRON) 325 13:05: mouth [place] mg (65 mg 32 daily. Medical iron) Branch tablet ferrous Yes 325mg Take 325 Unive rs sulfate 1-19 mg by ity of (IRON) 325 13:05: mouth [place] mg (65 mg 32 daily. Medical iron) Branch tablet ferrous Yes 325mg Take 325 Unive rs sulfate 1-19 mg by ity of (IRON) 325 13:05: mouth [place] mg (65 mg 32 daily. Medical iron) Branch tablet apixaban 2021- No Deep venous 5mg Take 1 Univers (Eliquis) 5 -18 03-11 thrombosis tablet (5 ity of mg tablet 00:00: 05:59 mg) by [place] 00 :00 mouth every 12 Anderso (twelve) n hours for Cancer 51 days. Center apixaban 2021- No Deep venous Take 2 Univers (Eliquis 1-11 -18 thrombosis tablets by ity of DVT-PE 00:00: 00:00 mouth Elke Treat 30D 00 :00 twice MD Start) 5 mg daily for And erso (74 tabs) 7 days, n tablet then take Cancer 1 tablet Center by mouth twice daily thereafter . minocycline 2021- No Epidural 100mg Take 1 Univers (MINOCIN) 06 02-06 abscess capsule ity of 100 mg 00:00: 05:59 (100 mg) [place] capsule 00 :00 by mouth MD twice Anderso daily for n 30 days. Cancer Center sodium Yes Surgical Inject 10 Un jack chloride 1-05 site mL (1 ity of (NS) 0.9% 00:00: infection syringe) [place] flush 00 <Subsequent into each MD syringe 10 > lumen of [place] so mL the n catheter Cancer daily as Center directed. 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 [facility] valACYclovi 2020-03- No Glioblastom 500mg Take 1 Univers r (VALTREX) 30 a tablet ity o f 500 mg 00:00: 05:59 multiforme (500 mg) [place] tablet 00 :00 by mouth MD daily for Anderso 30 days. Cancer [place] fluconazole 2020-03- No Glioblastom 200mg Take 1 Univers (DIFLUCAN) 30 a tablet ity of 200 mg 00:00: 05:59 multiforme (200 mg) [place] tablet 00 :00 by mouth MD daily for Anderso 30 days. Cancer [place] sodium 2020-03 Yes Postoperati Inject 10 Univers chloride 2-29 ve wound mL (1 ity of (NS) 0.9% 00:00: infection syringe) [place] flush 00 into each MD syringe 10 lumen of [place] so mL central n venous Cancer catheter Center daily as directed. sodium 2020-03- No Surgical Inject 10 U nivers chloride 2-29 03-04 site mL (1 ity of (NS) 0.9% 00:00: 00:00 infection syringe) [place] flush 00 :00 <Subsequent into each MD syringe 10 > lumen of [place] so mL the n catheter Cancer daily as Center directed. 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 n Cancer Center oxacillin 2020-03- No Infection 2000mg Infuse Univers IV 2-20 12-20 due to 2,000 mg ity of prescriptio 00:00: 00:00 Staphylococ intravenou [place] n (HOME 00 :00 cus sly every MD USE) Coagulase 4 (four) [place] o negative hours for n 18 days. Cancer Center apixaban 2020-03- No Deep venous Take 2 Univers (Eliquis 2-16 01-10 thrombosis tablets by ity of DVT-PE 00:00: 00:00 mouth [place] Treat 30D 00 :00 twice MD Start) 5 mg daily for And erso (74 tabs) 7 days, n tablet then take Cancer 1 tablet Center by mouth twice daily thereafter . apixaban 2020-03- No Deep venous Take 2 Univers (Eliquis 2-16 12-16 thrombosis tablets by ity of DVT-PE 00:00: 00:00 mouth [place] Treat 30D 00 :00 twice MD Start) 5 mg daily for And erso (74 tabs) 7 days, n tablet then take Cancer 1 tablet Center by mouth twice daily thereafter . sodium 2020-03- No Postoperati Inject 10 Univers chloride 2-14 12-29 ve wound mL (1 ity o f (NS) 0.9% 00:00: 00:00 infection syringe) [place] flush 00 :00 into each MD syringe 10 lumen of [place] so mL central n venous Cancer catheter Center daily as directed. levETIRAcet 2020-03 Yes Glioblastom 1000mg Take 1 Univers am (KEPPRA) 2-02 a tablet ity of 1000 mg 00:00: multiforme (1,000 mg) [place] tablet 00 by mouth MD every 12 Anderso (twelve) n hours. 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 [place] 50-325-40 00 Medical mg tablet Branch methocarbam 2020-03 Yes 500mg Take 500 U nivers oL 500 mg 2-01 mg by ity of tablet 00:00: mouth. Medical Branch butalbital- 2020-03 Yes 1{tbl} Take 1 Un jack acetaminoph 2-01 tablet by ity of en-caff 00:00: mouth. [place] 50-325-40 00 Medical mg tablet Branch methocarbam 2020-03 Yes 500mg Take 500 U nivers oL 500 mg 2-01 mg by ity of tablet 00:00: mouth. Medical Branch butalbital- 2020-03 Yes 1{tbl} Take 1 Un jack acetaminoph 2-01 tablet by ity of en-caff 00:00: mouth. [place] 50-325-40 00 Medical mg tablet Branch methocarbam 2020-03 Yes 500mg Take 500 U nivers oL 500 mg 2-01 mg by ity of tablet 00:00: mouth. Medical Branch butalbital- 2020-03 Yes 1{tbl} Take 1 Un jack acetaminoph 2-01 tablet by ity of en-caff 00:00: mouth. [place] 50-325-40 00 Medical mg tablet Branch methocarbam 2020-03 Yes 500mg Take 500 U nivers oL 500 mg 2-01 mg by ity of tablet 00:00: mouth. Medical Branch methocarbam 2020-03 Yes Postoperati 500mg Take 1 Univers ol 2-01 ve wound tablet ity of (ROBAXIN) 00:00: infection (500 mg) [place] 500 mg 00 by mouth MD tablet every 8 Anderso (eight) n hours. Cancer Center butalbital- 2020-03 Yes Postoperati 1{tbl} Take 1 Univers acetaminoph 2 ve wound tablet by ity of en-caffeine 00:00: infection mouth El[place] (FIORICET, 00 every 6 MD ESGIC) 50 (six) Anderso mg-325 hours as n mg-40 mg needed for Cance r tablet headaches. Center linezolid 2020-03- No Postoperati 600mg Take 1 Univers (Zyvox) 600 04-03 12-19 ve wound tablet i ty of mg tablet 00:00: 05:59 infection (600 mg) [place] 00 :00 by mouth MD twice Anderso daily for n 16 days. Cancer Center sodium 2020-03- No Postoperati Inject 10 Univers chloride 04-03 12-14 ve wound mL (1 ity o f (NS) 0.9% 00:00: 00:00 infection syringe) [place] flush 00 :00 into each MD syringe 10 lumen of [place] so mL central n venous Cancer catheter Center daily as directed. gabapentin 2020-03- No Other acute 900mg Take 3 Univers (NEURONTIN) - 12-30 postoperati capsules ity of 300 mg 00:00: 05:59 ve pain (900 mg) [place] as capsule 00 :00 by mouth 3 MD (three) Anderso times a n day for 30 Cancer days. Center pantoprazol 2020-03 Yes Headache 40mg Take 1 Univers e 0-28 tablet (40 ity of (PROTONIX) 00:00: mg) by [place] 40 mg EC 00 mouth MD tablet daily. Anderso n Cancer Center traMADol 2020-03 Yes Other acute 50mg Take 1 Univers (ULTRAM) 50 0-27 postoperati tablet (50 ity of mg tablet 00:00: ve pain mg) by [place] as 00 mouth MD every 6 Anderso (six) n hours as Cancer needed Center (headaches ). ondansetron 2020-03 Yes Take 1 Univ ers 8 mg tablet 0-22 tablet 30 ity of 00:00: minutes [place] 00 prior to Medical Temozolomi Branch de and take 1 tablet every 8 hours as needed for nausea/vom iting. ondansetron 2020-03 Yes Take 1 Univ ers 8 mg tablet 0-22 tablet 30 ity of 00:00: minutes 00 prior to Medical Temozolomi Branch de and take 1 tablet every 8 hours as needed for nausea/vom iting. ondansetron 2020-03 Yes Take 1 Univ ers 8 mg tablet 0-22 tablet 30 ity of 00:00: minutes prior to Medical Temozolomi Branch de and take 1 tablet every 8 hours as needed for nausea/vom iting. ondansetron 2020-03 Yes Take 1 Univ ers 8 mg tablet 0-22 tablet 30 ity of 00:00: minutes 00 prior to Medical Temozolomi Branch de and take 1 tablet every 8 hours as needed for nausea/vom iting. ondansetron 2020-03 Yes Glioblastom Take 1 Univers (ZOFRAN) 8 0-22 a tablet 30 ity of mg tablet 00:00: multiforme minutes prior to Temozolab batres and n take 1 Cancer tablet Center every 8 hours as needed for nausea/vom iting. dronabinoL 2020-03 Yes 5mg Take 5 mg Un jack 5 mg 0-11 by mouth. ity of capsule 00:00: [facility] Branch levETIRAcet 2020-03 Yes 1000mg Take 1,000 Univers am 1,000 mg 0-11 mg by ity of tablet 00:00: mouth. [facility] Branch dronabinoL 2020-03 Yes 5mg Take 5 mg Un jack 5 mg 0-11 by mouth. ity of capsule 00:00: [facility] Branch levETIRAcet 2020-03 Yes 1000mg Take 1,000 Univers am 1,000 mg 0-11 mg by ity of tablet 00:00: mouth. [facility] Branch dronabinoL 2020-03 Yes 5mg Take 5 mg Un jack 5 mg 0-11 by mouth. ity of capsule 00:00: [facility] Branch levETIRAcet 2020-03 Yes 1000mg Take 1,000 Univers am 1,000 mg 0-11 mg by ity of tablet 00:00: mouth. [facility] dronabinoL 2020-03 Yes 5mg Take 5 mg Un jack 5 mg 0-11 by mouth. ity of capsule 00:00: [address] levETIRAcet 2020-03 Yes 1000mg Take 1,000 Univers am 1,000 mg 0-11 mg by ity of tablet 00:00: mouth. [place] [facility] levETIRAcet 2020-03 Yes Glioblastom 1000mg Take 1 Univers am (KEPPRA) 0-11 a tablet ity of 1000 mg 00:00: multiforme (1,000 mg) [place] tablet 00 by mouth every 12 Saskia (twelve) n hours. [facility] amLODIPine 2020-03 Yes Glioblastom 5mg Take 1 Univers (NORVASC) 5 0-11 a tablet (5 ity of mg tablet 00:00: multiforme mg) by [place] 00 mouth MD daily. [facility] dronabinol 2020-03 Yes Other acute 5mg Take 1 Univers (MARINOL) 5 0-11 postoperati capsule (5 ity of mg capsule 00:00: ve pain mg) by [place] 00 mouth 3 (three) [place] times a n day. Cancer Center sertraline Yes 200mg Take 200 Un jack (ZOLOFT) 6-14 mg by ity of 100 mg 00:00: mouth [place] tablet 00 daily. MD Saskia hoffman [facility] Immunizations Ordered Filled Immunization Date Status Comments [facility] e Immunization Name Name Pfizer SARS-CoV-2 2020-11-25 Completed Univer sity of Vaccination (Purple 00:00:00 [facility]) [facility] Vital Signs Vital Name Observation Time Observation Value Comments Source Systolic blood 2022-01-07 15:34:00 111 mm[Hg] Univer sity of pressure [facility] Diastolic blood 2022-01-07 15:34:00 72 mm[Hg] Unive rsity of pressure [facility] Heart rate 2022-01-07 15:34:00 57 /min [facility] Body temperature 2022-01-07 15:34:00 35.78 [facility] Res[facility] 2022-01-07 15:34:00 16 /min [facility] Body height 2022-01-07 15:34:00 172.7 cm [facility] Body weight 2022-01-07 15:34:00 85.594 kg [facility]i ty [facility] [place] [facility] BMI 2022-01-07 15:34:00 28.69 kg/m2 Universi ty of [facility] Branch Oxygen saturation in 2022-01-07 15:34:00 100 /min University of Arterial blood by [facility] Pulse oximetry Branch Systolic blood 2021-10-08 15:52:00 107 mm[Hg] Univer sity of pressure [facility] Diastolic blood 2021-10-08 15:52:00 76 mm[Hg] Unive rsity of pressure [facility] Heart rate 2021-10-08 15:52:00 75 /min Universi ty of [facility] Body temperature 2021-10-08 15:52:00 36.17 Tori Univ ersity of [facility] Respiratory rate 2021-10-08 15:52:00 16 /min Univ ersity of [facility] Body height 2021-10-08 15:52:00 171.5 cm Universi ty of [facility] Body weight 2021-10-08 15:52:00 83.825 kg [facility] [place] [facility] BMI 2021-10-08 15:52:00 28.52 kg/m2 Universi ty of [facility] Branch Oxygen saturation in 2021-10-08 15:52:00 99 /min University of Arterial blood by [facility] Pulse oximetry Branch Systolic blood 2021-03-20 18:14:56 119 mm[Hg] Univer sitanika of pressure [facility] Diastolic blood 2021-03-20 18:14:56 82 mm[Hg] Unive rsity of pressure [facility] Heart rate 2021-03-20 18:14:56 64 /min Universi ty of [facility] Respiratory rate 2021-03-20 18:14:56 17 /min Univ ersity of [facility]ke [facility] on [facility] Oxygen saturation in 2021-03-20 18:14:56 97 /min University of Arterial blood by Elke law Pulse oximetry Cancer Center Body temperature 2021-02-15 21:12:40 37 Tori Univ ersity of Elke [facility] on [facility] Body weight 2021-02-15 16:35:00 87.7 kg Universi ty of [facility]ke [facility] on [facility] BMI 2021-02-15 16:35:00 29.82 kg/m2 [facility] MD [facility]ell[facility] on [facility] Body height 2021-02-14 15:50:00 171.5 cm [facility] [facility] MD [facility] Procedures Procedure Date / Time Performing Clinician Source Performed MR BRAIN W WO CONTRAST 2021-12-25 13:52:[address] [facility] COMPLETE BLOOD COUNT W/ 2021-02-27 14:39:00 Igor Vela [facility] DIFFERENTIAL [facility] COMPREHENSIVE METABOLIC 2021-02-27 14:39:00 Igor Vela [facility] PANEL [facility] Results CBC 2021-02-27 14:39:00 Igor Vela [facility] MANUAL DIFFERENTIAL 2021-02-27 14:39:00 Igor Vela [facility] GLUCOSE LEVEL 2021-02-27 14:39:00 Igor Vela [facility] BLOOD UREA NITROGEN 2021-02-27 14:39:00 Igor Vela [facility] ELECTROLYTE PANEL 2021-02-27 14:39:00 Igor Vela [facility] SERUM CREATININE 2021-02-27 14:39:00 Igor Vela [facility] .GLOMERULAR FILTRATION 2021-02-27 14:39:00 Igor Vela [facility] RATE [facility] CALCIUM LEVEL TOTAL 2021-02-27 14:39:00 Igor Vela [facility] ALBUMIN LEVEL 2021-02-27 14:39:00 Igor Vela [facility] ALKALINE PHOSPHATASE 2021-02-27 14:39:00 Igor Vela [facility] ALANINE AMINOTRANSFERASE 2021-02-27 14:39:00 Igor Vela [facility] ASPARTATE AMINOTRANSFERASE 2021-02-27 14:39:00 Christ Vela [facility] TOTAL PROTEIN 2021-02-27 14:39:00 Igor Vela [facility] FRACTIONATED BILIRUBIN 2021-02-27 14:39:00 Igor Vela [facility] POC CHEM 8 2021-02-15 17:55:00 Tamar Billingsley [facility] POC VENOUS BLOOD GAS + 2021-02-15 17:51:00 Tamar Billingsley [facility] LACTATE [facility] COVID-19 (SARS-COV-2) 2021-02-15 17:42:00 Shira [facility] ASY[facility]LT [facility] COMPREHENSIVE METABOLIC 2021-02-15 17:42:00 Shira Clark [facility] PANEL [facility] MAGNESIUM LEVEL 2021-02-15 17:42:00 Shira Clark [facility] PHOSPHORUS LEVEL 2021-02-15 17:42:00 Eduardo [facility] COMPLETE BLOOD COUNT W/ 2021-02-15 17:42:00 Shira Clark [facility] DIFFERENTIAL [facility] PROTHROMBIN TIME 2021-02-15 17:42:00 Eduardo [facility] APTT 2021-02-15 17:42:00 Shira Clark [facility] GLUCOSE LEVEL 2021-02-15 17:42:00 Eduardo [facility] BLOOD UREA NITROGEN 2021-02-15 17:42:00 Shira Clrak [facility] ELECTROLYTE PANEL 2021-02-15 17:42:00 Eduardo [facility] SERUM CREATININE 2021-02-15 17:42:00 Eduardo, Shira [facility] .GLOMERULAR FILTRATION 2021-02-15 17:42:00 Shira Clark [facility] RATE [facility] [place] CALCIUM LEVEL TOTAL 2021-02-15 17:42:00 Shira Clark [facility] ALBUMIN LEVEL 2021-02-15 17:42:00 Shira Clark [place] [facility] Center ALKALINE PHOSPHATASE 2021-02-15 17:42:00 Shira Clark [facility] ALANINE AMINOTRANSFERASE 2021-02-15 17:42:00 [facility] ASPARTATE AMINOTRANSFERASE 2021-02-15 17:42:00 [facility] TOTAL PROTEIN 2021-02-15 17:42:00 Shira Clark [facility] Center FRACTIONATED BILIRUBIN 2021-02-15 17:42:00 Shira Clark [facility] Results CBC 2021-02-15 17:42:00 Shira Clark [facility] Center MANUAL DIFFERENTIAL 2021-02-15 17:42:00 Shira Clark [facility] US ARM VENOUS DOPPLER 2021-02-15 15:35:37 Joy [facility] RIGHT [facility] COMPLETE BLOOD COUNT W/ 2021-02-14 18:26:00 Truong Evans [facility] DIFFERENTIAL [facility] HEPATIC FUNCTION PANEL 2021-02-14 18:26:00 [facility] Center BASIC METABOLIC PANEL, 2021-02-14 18:26:00 Tru[facility] CALCIUM IONIZED [facility] Center Results CBC 2021-02-14 18:26:00 Bartolo Evanssamara [facility] Center MANUAL DIFFERENTIAL 2021-02-14 18:26:00 Truong Evans [facility] er Center ALBUMIN LEVEL 2021-02-14 18:26:00 Truong Evans [place] [facility] ALKALINE PHOSPHATASE 2021-02-14 18:26:00 Truong Evans [facility] ALANINE AMINOTRANSFERASE 2021-02-14 18:26:00 Truong Evans [facility] ASPARTATE AMINOTRANSFERASE 2021-02-14 18:26:00 Truong Evans [facility] TOTAL PROTEIN 2021-02-14 18:26:00 [facility] FRACTIONATED BILIRUBIN 2021-02-14 18:26:00 Truong Evans [facility] GLUCOSE LEVEL 2021-02-14 18:26:00 Bartolo Evanssamara [place] [facility] BLOOD UREA NITROGEN 2021-02-14 18:26:00 Truong Evans [facility] ELECTROLYTE PANEL 2021-02-14 18:26:00 Truong Evans [facility] SERUM CREATININE 2021-02-14 18:26:00 Nathan [facility] .GLOMERULAR FILTRATION 2021-02-14 18:26:00 Truong Evans [facility] CALCIUM IONIZED, VENOUS 2021-02-14 18:26:00 Truong Evans [facility] MRI BRAIN W WO CONTRAST 2021-02-14 16:36:40 Noemi Mejia [facility] Plan of Care Planned Activity Planned Date Details Comments Source Future Scheduled 2022-02-06 COVID-19 [facility]ination [facility] 17:47:49 (2 - Pfizer risk [facility] Cancer series) [code = Center COVID-19 Vaccination (2 - Pfizer risk series)] Encounters Start End Encounter Admission Attending Care Care Encounter Source Date/Time Date/Time Type Type Clinicians Facility Department ID 2021-03-26 Outpatient SYSTEM, GIOVANNA HEREDIA [id number] 14:18:38 PROVIDER Itmi o n 2020-11-22 Outpatient MDA [employer] [facility] [id number] 13:38:26 Saskia hoffman 2020-11-15 Outpatient SYSTEM, [facility] [id number] 15:44:12 PROVIDER Timi hoffman 2020-10-02 Outpatient SYSTEM, [facility] [id number] 19:41:31 PROVIDER Timi hoffman 2022-01-07 2022-01-07 Outpatient R JORDAN PRINCE [facility] [id number] Univers 09:00:00 09:55:03 JORDAN PRINCE [facility] 2022-01-07 2022-01-07 Office ONI Prince [id number] Univers 09:00:00 09:55:03 Visit Jordan Rod [id number] it y of [place] 4.2.7.2.686 [place] [phone] [address] 2021-12-25 2021-12-25 [facility] [id number] Univers 07:42:24 23:59:00 IGOR obregon [facility] 2021-12-25 2021-12-25 [facility] 1.2.840.114 [id number] Univers 07:42:24 23:59:00 Encounter [facility] 4.2.7.2.686 [facility] [phone] [facility] [address] 2021-10-08 2021-10-08 Office ONI Prince 1.2.104.425 [id number] Univers 10:40:00 11:14:49 Visit Jordan Rod [id number] it y of [facility] 4.2.7.2.686 [place] [phone] [facility] [address] 2021-10-08 2021-10-08 Outpatient JORDAN MYERS [facility] [id number] Univers 10:40:00 11:14:49 JORDAN PRINCE [facility] 2021-10-08 2021-10-08 Outpatient JORDAN MYERS [facility] [id number] Univers 10:40:00 10:40:00 JORDAN PRINCE [facility] 2021-09-20 2021-09-20 Outpatient Kyle DORMAN [facility] [id number] Univers 10:00:00 23:59:00 IGOR [facility] 2021-09-20 2021-09-20 [facility] 1.2.840.114 [id number] Univers 10:00:00 23:59:00 Encounter [facility] [id number] ity of [facility] 4.2.7.2.686 [place] [phone] [facility] [address] ([facility]) 2021-09-20 2021-09-20 Outpatient Kyle DORMAN [facility] [id number] Univers 10:00:00 10:00:00 IGOR anika [facility] 2021-09-20 2021-09-20 Outpatient Kyle DORMAN [facility] [id number] Univers 10:00:00 10:00:00 [facility] 2021-09-20 2021-09-20 Telephone ONI Lee 1.2.840.114 [id number] Univers 00:00:00 00:00:00 Doug Rod [id number] ity of [place] 4.2.7.2.686 [place] [phone] [address] 2021-09-18 2021-09-18 Patient ONI Prince [id number] Univers 00:00:00 00:00:00 Secure Msg Jordan Rod 350.1.13.10 ity of [place] 4.2.7.2.686 [place] [id number] [address] 2021-07-09 2021-07-09 Office ONI Prince 1.2.355.690 [id number] Univers 11:20:00 11:40:00 Visit Jordan Rod 350.1.13.10 it y of [place] 4.2.7.2.686 [place] [id number] [address] 2021-07-09 2021-07-09 Outpatient R JORDAN PRINCE [facility] [id number] Univers 11:20:00 11:20:00 JORDAN PRINCE [facility] 2021-07-02 2021-07-02 Outpatient Kyle DORMAN [facility] [id number] Univers 09:16:33 23:59:00 IGOR itanika [facility] 2021-07-02 2021-07-02 Hospital Dandy, DEVENIT 1.2.840.114 [id number] Univers 09:16:33 23:59:00 Encounter Igor Anika CARROLL 350.1.13.10 ity of [facility] 4.2.7.2.[place] [phone] [facility] [address] 2021-06-12 2021-06-12 Patient ONI Mojica 1.2.840.114 [id number] Univers 00:00:00 00:00:00 Outreach Jonathan Melissa Rod 350.1.13.10 ity [facility] 4.2.7.2.686 [place] [phone] [facility] [address] 2021-06-11 2021-06-11 Outpatient R JORDAN PRINCE [facility] [id number] Univers 11:20:00 12:22:32 JORDAN PRINCE [facility] 2021-06-11 2021-06-11 Office ONI Prince 1.2.630.536 [id number] Univers 11:20:00 12:22:32 Visit Jordan Rod 350.1.13.10 it y of [facility] 4.2.7.2.686 [place] [phone] [facility] [address] 2021-06-04 2021-06-04 Strategic Intelligence Officer 2, Adc Lab [facility] 1.2.840.114 [id number] Univers 08:45:00 09:00:00 Visit Jordan Prince 350.1.13.10 ity [facility] 4.2.7.2.[place] PROF[place] [phone] [facility] 2021-06-04 2021-06-04 Outpatient R JORDAN PRINCE [facility] [id number] Univers 08:45:00 08:45:00 JORDAN PRINCE [facility] 2021-05-30 2021-05-30 Orders Doctor SHIRA 1.2.840.114 [id number] Univers 00:00:00 00:00:00 Only Unassigned, TONI 350.1.13.10 ity of [place] [facility] 4.2.7.2.686 [place] [phone] [facility] [address] 2021-05-22 2021-05-22 Orders Doctor SHIRA 1.2.840.114 [id number] Univers 00:00:00 00:00:00 Only Unassigned, TONI 350.1.13.10 ity of [place] [facility] 4.2.7.2.686 [place] [phone] [facility] [address] 2021-05-21 2021-05-21 Strategic Intelligence Officer 2, Adc Lab [facility] 1.2.840.114 [id number] Univers 08:30:00 08:45:00 Visit Jordan Prince 350.1.13.10 ity [facility] 4.[place] [phone] [address] 2021-05-21 2021-05-21 Outpatient R JORDAN PRINCE [facility] [id number] Univers 08:30:00 08:30:00 JORDAN PRINCE [facility] 2021-05-16 2021-05-16 Nurse Nurse, Onc Rupa BUNN 1.2.840.1 [id number] Univers 10:00:00 10:15:00 Visit Jordan [facility] 4.2.7.2.686 [place] [phone] [facility] [address] 2021-05-16 2021-05-16 Outpatient R JORDAN PRINCE [facility] [id number] Univers 10:00:00 10:00:00 JORDAN PRINCE [facility] 2021-05-16 2021-05-16 Outpatient R JORDAN PRINCE [facility] [id number] Univers 10:00:00 10:00:00 JORDAN PRINCE [facility] 2021-05-102021-05-10 Telephone ONI Prince 1.2.840.114 [id number] Univers 00:00:00 00:00:00 Jordan H 350.1.13.10 it y of [place] 4.2.7.2.686 [place] [phone] [address] 2021-05-09 2021-05-09 [facility] 1.2.840.1 [id number] Univers 00:00:00 00:00:00 plinary H 350.1.13.10 it y of [employer] [place] 4.2.7.2.686 [place] [phone] [address] 2021-05-09 2021-05-09 Telephone ONI Prince 1.2.840.114 [id number] Univers 00:00:00 00:00:00 Jordan H 350.1.13.10 it y of [place] 4.2.7.2.686 [place] [phone] [address] 2021-05-08 2021-05-08 [facility] [id number] Univers 10:00:00 12:10:22 CARMINE [place] [facility] 2021-05-08 2021-05-08 Office ONI Herrera 1.2.840.114 [id number] Univers 10:00:00 12:10:22 Visit Carmine Eloy Marcel 350.1.13.10 ity of [place] 4.2.7.2.686 [place] [phone] [address] 2021-05-08 2021-05-08 Office ONI Herrera 1.2.840.114 [id number] Univers 10:00:00 11:00:00 Visit Carmine Rod 350.1.13.10 ity of [place] 4.2.7.2.686 [place] [id number] [address] 2021-05-08 2021-05-08 [facility] [id number] Univers 10:00:00 10:00:00 CARMINE [place] [facility] 2021-05-07 2021-05-07 Office ONI Prince 1.2.236.128 [id number] Univers 11:20:00 12:01:45 Visit Jordan Rod 350.1.13.10 it y of [facility] 4.2.7.2.686 [place] [id number] [address] 2021-05-07 2021-05-07 Outpatient Kyle PRINCE, JORDAN [facility] [id number] Univers 11:20:00 12:01:45 PRINCEJORDAN [facility] 2021-05-07 2021-05-07 Outpatient R JORDAN PRINCE [facility] [id number] Univers 11:20:00 11:20:00 PRINCE JORDAN [place] [facility] 2021-05-07 2021-05-07 Telephone ONI Prince 1.2.840.114 [id number] Univers 00:00:00 00:00:00 Jordan Rod 350.1.13.10 it y of [facility] 4.2.7.2.686 [place] [phone] [address] 2021-05-03 2021-05-03 Strategic Intelligence Officer 2, Adc Lab [facility] 1.2.840.114 [id number] Univers 10:00:00 10:15:00 Visit Jordan Prince 350.1.13.10 ity [place] [address].[place] PROF[place] [phone] [facility] 2021-05-03 2021-05-03 Outpatient Kyle JORDAN PRINCE [facility] [id number] Univers 10:00:00 10:00:00 PRINCEJORDAN [facility] 2021-05-03 2021-05-03 Orders Doctor SHIRA 1.2.840.114 [id number] Univers 00:00:00 00:00:00 Only Unassigned, TONI 350.1.13.10 ity of [place] [address].2.7.2.686 [place] [phone] [address] 2021-04-30 2021-04-30 Patient ONI Prince 1.2.833.648 [id number] Univers 00:00:00 00:00:00 Secure Msg Jordan Rod 350.1.13.10 ity of [place] 4.2.7.2.686 [place] [phone] [address] 2021-04-27 2021-04-27 Telephone ONI Prince 1.2.840.114 [id number] Univers 00:00:00 00:00:00 Jordan Rod 350.1.13.10 it y of [place] 4.2.7.2.686 [place] [id number] [address] 2021-04-25 2021-04-25 Telephone ONI Prince 1.2.840.114 [id number] Univers 00:00:00 00:00:00 Jordan Rod 350.1.13.10 it y of [place] 4.2.7.2.686 [place] [id number] [address] 2021-04-23 2021-04-23 Telephone ONI Prince 1.2.840.114 [id number] Univers 00:00:00 00:00:00 Jordan Rod 350.1.13.10 it y of [place] 4.2.7.2.686 [place] [phone] [address] 2021-04-09 2021-04-09 Office ONI Prince 1.2.768.878 [id number] [facility] 11:00:00 11:49:15 Visit Jordan Rod 350.1.13.10 it y of [place] 4.2.7.2.686 [place] [id number] [address] 2021-04-09 2021-04-09 Outpatient JORDAN MYERS [facility] [id number] Univers 11:00:00 11:49:15 JORDAN PRINCE [facility] 2021-04-05 2021-04-05 Outpatient JORDAN MYERS [facility] [id number] Univers 16:24:14 23:59:00 JORDAN PRINCE [facility] 2021-04-05 2021-04-05 [facility] SELVIN Prince 1.2.840.114 [id number] Univers 16:24:14 23:59:00 Encounter Jordan CARROLL 350.1.13.10 ity of CL[place] 4[place] [id number] [facility] [address] 2021-04-05 2021-04-05 Strategic Intelligence Officer 2, Adc Lab [facility] 1.2.840.114 [id number] Univers 10:00:00 10:00:00 Visit Jordan Prince 350.1.13.10 ity of [place] 4.2.7.2.[place] PROF[place] [phone] Pr dical [facility] [address] BU[address]ING 2021-03-21 2021-03-21 Outpatient R JORDAN PRINCE [facility] [id number] Univers 13:00:00 13:57:55 JORDAN PRINCE ity [facility] 2021-03-21 2021-03-21 Office ONI Prince [id number] Univers 13:00:00 13:40:00 Visit Jordan Rod 350.1.13.10 it y of [facility] 4.2.7.2.686 [place] [phone] [facility] [address] 2021-03-21 2021-03-21 Outpatient R JORDAN PRINCE [facility] [id number] Univers 13:00:00 13:00:00 JORDAN PRINCE ity [facility] 2021-03-21 2021-03-21 Letter Doctor SHIRA 1.2.840.114 [id number] Univers 00:00:00 00:00:00 (Out) Unassigned, TONI 350.1.13.10 ity of [place] [facility] 4.2.7.2.686 [place] [id number] [facility] [address] 2021-03-21 2021-03-21 Orders Doctor SHIRA 1.2.840.114 [id number] Univers 00:00:00 00:00:00 Only Unassigned, TONI 350.1.13.10 ity of [place] [facility] 4.2.7.2.686 [place] [phone] [facility] [address] 2021-03-20 2021-03-20 [facility] Bety Silva 1.2.840.1 [id number] Univers 10:20:00 23:59:00 Rachel Miller 63664.1.1 ity of 3.412.2.7 [place] .3.635481 MD [facility] 2021-03-20 2021-03-20 Outpatient BETY SILVA MDA MDA [id number] 10:20:00 23:59:00 Timi o n 2021-03-20 2021-03-20 Outpatient FAREED COONEY [employer] MDA [id number] [place] 10:20:15 10:35:00 RAY And antonio MARX n 2021-03-20 2021-03-20 Telemedici Eros 1.2.840.1 [id number] Univers 10:00:00 10:35:00 logan Bell 35101.1.1 i ty of [place] .3.556647 MD [facility] 2021-03-20 2021-03-20 Travel 1.2.840.1 1.2.237.492 [id number] Univers 00:00:00 00:00:00 12154.1.1 350.1.13.41 ity of 3.412.2.7 [place].3.698 [place] .3.470794 084.8 MD [facility] 2021-03-16 2021-03-16 Kelly Rico 1.2.840.1 [id number] Univers 00:00:00 00:00:00 Ashlyn Pyle 16110.1.1 ity of 3.412.2.7 [place] .3.973774 MD [facility] 2021-03-16 2021-03-16 Bubba Mendez, 1.2.840.1 [id number] Univers 00:00:00 00:00:00 Tomas Donaldson 73839.1.1 it y of 3.412.2.7 [place] .3.314815 MD [facility] 2021-03-14 2021-03-14 Orders Bety Silva 1.2.840.1 [id number] Univers 00:00:00 00:00:00 Only 36788.1.1 ity of 3.412.2.7 [place] .3.678809 MD Duarte8 [facility] 2021-03-12 2021-03-12 Refill Nas 1.2.840.1 [id number] Univers 00:00:00 00:00:00 , Rosanne 11010.1.1 ity of 3.412.2.7 [place] .3.682309 MD Duarte8 [facility] 2021-03-12 2021-03-12 Telephone Nas 1.2.840.1 [id number] Univers 00:00:00 00:00:00 , Rosanne 86568.1.1 ity of 3.412.2.7 [place] .3.717417 MD Duarte8 [facility] 2021-03-09 2021-03-09 [facility] 1.2.840.1 [id number] [id number] [facility] 07:29:00 23:59:00 Encounter Kenny 77753.1.1 it y of 3.412.2.7 [place] .3.555897 MD Duarte8 [facility] 2021-03-09 2021-03-09 [facility] [id number] 07:29:00 23:59:00 KENNY [facility] 2021-03-09 2021-03-09 Refill Tyson, 1.2.840.1 [id number] Univers 00:00:00 00:00:00 Kenny 78226.1.1 ity of 3.412.2.7 [place] .3.530580 MD Duarte8 [facility] 2021-03-08 2021-03-08 Documentat Jacky, 1.2.840.1 [id number] Univers 00:00:00 00:00:00 ion Ashlyn D 14231.1.1 ity of 3.412.2.7 [place] .3.064902 MD Duarte8 [facility] 2021-03-08 2021-03-08 Bety Larry 1.2.840.1 [id number] Univers 00:00:00 00:00:00 Only 81991.1.1 ity of 3.412.2.7 [place] .3.262583 MD Duarte8 [facility] 2021-03-08 2021-03-08 Telephone Nas 1.2.840.1 [id number] Univers 00:00:00 00:00:00 , Rosanne 79325.1.1 ity of 3.412.2.7 [place] .3.726897 MD Duarte8 [facility] 2021-03-06 2021-03-06 [facility] Frederic 1.2.840.1 [id number] [facility] 08:19:00 23:59:00 Encounter Samantha Carlisle.1.1 it y of [place] 3.412.2.7 [place] .3.707108 MD Duarte8 [facility] 2021-03-06 2021-03-06 Outpatient FREDERIC [facility] [id number] [place] 08:19:00 23:59:00 Timi CARLISLE 2021-03-06 2021-03-06 Mobile Orda-Quintanilla 1.2.840.1 [id number] Univers 00:00:00 00:00:00 Encounter Igor 30611.1.1 i ty of 3.412.2.7 [place] .3.792712 MD Duarte8 [facility] 2021-03-06 2021-03-06 Orders Orda-Quintanilla 1.2.840.1 [id number] Univers 00:00:00 00:00:00 Only Igor 44251.1.1 ity of 3.412.2.7 [place] .3.284687 MD Duarte8 [facility] 2021-03-06 2021-03-06 Bety Johnson 1.2.840.1 [id number] Univers 00:00:00 00:00:00 47773.1.1 ity of 3.412.2.7 [place] .3.282942 MD Duarte8 [facility] 2021-03-01 2021-03-01 Orders Orda-Quintanilla 1.2.840.1 [id number] Univers 00:00:00 00:00:00 Only , Igor 32212.1.1 ity of 3.412.2.7 [place] .3.865852 MD Duarte8 [facility] 2021-03-01 2021-03-01 Documentat Jacky, 1.2.840.1 [id number] Univers 00:00:00 00:00:00 ion Ashlyn Pyle 54230.1.1 ity of 3.412.2.7 [place] .3.122105 MD Duarte8 [facility] 2021-03-01 2021-03-01 Orders Aleshia, 1.2.840.1 [id number] [facility] 00:00:00 00:00:00 Only Radha Hoffman 91252.1.1 it y of 3.412.2.7 [place] .3.011187 MD Duarte8 [facility] 2021-02-28 2021-02-28 Orders Orda-Quintanilla 1.2.840.1 [id number] [facility] 00:00:00 00:00:00 Only , Igor 92930.1.1 ity of 3.412.2.7 [place] .3.747058 MD Marshall [facility] 2021-02-27 2021-02-27 Outpatient [facility], [facility] [id number] MD 16:00:00 23:59:00 RACHEL hoffman 2021-02-27 2021-02-27 [facility], 1.2.840.1 [id number] [facility] 16:00:00 23:59:00 Encounter Rachel Medrano 80608.1.1 i ty of 3.412.2.7 [place] .3.002084 MD Marshall [facility] 2021-02-27 2021-02-27 Outpatient [facility] [id number] 09:03:00 15:59:00 KENNY willams [place] 2021-02-27 2021-02-27 [facility], 1.2.840.1 [id number] [facility] 09:03:00 15:59:00 Encounter Kenny 27442.1.1 it y of 3.412.2.7 [place] .3.485031 MD Marshall [facility] 2021-02-27 2021-02-27 Outpatient JESUS, [facility] [id number] 08:34:10 09:02:00 IGOR hoffman 2021-02-27 2021-02-27 [facility] 1.2.840.1 [id number] [facility] 08:34:10 09:02:00 Encounter Igor 58595.1.1 i ty of 3.412.2.7 [place] .3.180156 MD Marshall [facility] 2021-02-27 2021-02-27 Orders Tubera, 1.2.840.1 [id number] Univers 00:00:00 00:00:00 Only Sue 12466.1.1 ity of 3.412.2.7 [place] .3.751124 MD Marshall [facility] 2021-02-27 2021-02-27 Travel 1.2.840.1 1.2.229.181 [id number] Univers 00:00:00 00:00:00 09711.1.1 350.1.13.41 ity of 3.412.2.7 [place].3.698 [place] .3.620449 084.8 MD [facility] 2021-02-26 2021-02-26 Telephone Nas 1.2.840.1 [id number] Univers 00:00:00 00:00:00 , Rosanne 77226.1.1 ity of 3.412.2.7 [place] .3.346051 MD [facility] 2021-02-26 2021-02-26 Orders Jennifer Hardin 1.2.840.1 [id number] Univers 00:00:00 00:00:00 Only 51987.1.1 ity of 3.412.2.7 [place] .3.327075 MD Duarte8 [facility] 2021-02-26 2021-02-26 Orders Tom, 1.2.840.1 [id number] Univers 00:00:00 00:00:00 Only Cordell 19648.1.1 ity of 3.412.2.7 [place] .3.908890 MD Duarte8 [facility] 2021-02-23 2021-02-23 [facility] [id number] MD 08:16:00 23:59:00 Timi CARLISLE 2021-02-23 2021-02-23 [facility] 1.2.840.1 [id number] [facility] 08:16:00 23:59:00 Encounter Orestes 89429.1.1 it y of [place] 3.412.2.7 [place] .3.926034 MD Duarte8 [facility] 2021-02-23 2021-02-23 Bubba Vela 1.2.840.1 [id number] Univers 00:00:00 00:00:00 , Igor 55815.1.1 ity of 3.412.2.7 [place] .3.927485 MD Duarte8 [facility] 2021-02-21 2021-02-21 Refrusty Evans, 1.2.840.1 [id number] Univers 00:00:00 00:00:00 Truong 87221.1.1 ity of 3.412.2.7 [place] .3.759035 MD Duarte8 [facility] 2021-02-19 2021-02-19 Documentjosh Nelson, 1.2.840.1 [id number] Univers 00:00:00 00:00:00 ion Aimee 40079.1.1 ity of Annette 3.412.2.7 [place] .3.802647 .8 [facility] 2021-02-19 2021-02-19 Orders Frederic 1.2.840.1 [id number] Univers 00:00:00 00:00:00 Only Orestes, 63866.1.1 ity of [place] 3.412.2.7 [place] .3.916297 .8 [facility] 2021-02-16 2021-02-16 Outpatient FAREED EVANS [facility] [id number] [place] 10:19:00 23:59:00 TRUONG hoffman 2021-02-16 2021-02-16 [facility] Nathan, 1.2.840.1 [id number] [facility] 10:19:00 23:59:00 Encounter Truong 93407.1.1 it y of 3.412.2.7 [place] .3.911846 .8 [facility] 2021-02-15 2021-02-15 Emergency ER ANALILIA, [facility] Emergency [id number] [place] 11:03:00 16:41:00 TAMAR hoffman 2021-02-15 2021-02-15 Emergency Analilia, 1.2.840.1 [id number] [facility] 11:03:00 16:41:00 Tamar Jon 92147.1.1 ity of 3.412.2.7 [place] .3.065219 .8 [facility] 2021-02-15 2021-02-15 Telemedici Bety Silva 1.2.840.1 [id number] [facility] 09:30:00 09:56:39 ne 46997.1.1 ity of 3.412.2.7 [place] .3.301338 MD Duarte8 [facility] 2021-02-15 2021-02-15 Outpatient BETY VILLAFUERTE MDA [employer] [id number] 09:25:57 09:56:39 Timi hoffman 2021-02-15 2021-02-15 Ancillary Bakari, 1.2.840.1 [id number] Univers 08:30:00 09:30:00 Procedure Joy 25362.1.1 it y of 3.412.2.7 [place] .3.516340 MD Marshall [facility] 2021-02-15 2021-02-15 Outpatient FAREED CAZARES, MDA MDA [id number] 08:33:29 08:33:29 JOY hoffman 2021-02-15 2021-02-15 Orders Cooney 1.2.840.1 [id number] Univers 00:00:00 00:00:00 Only Ray 29807.1.1 i ty of [place] 3.[place].2.7 [place] .3.197810 MD Duarte8 [facility] 2021-02-15 2021-02-15 Documentat Eros 1.2.840.1 [id number] Univers 00:00:00 00:00:00 isael Bell 51151.1.1 i ty of [place].412.2.7 [place] .3.542378 MD Duarte8 [facility] 2021-02-15 2021-02-15 Documentat Omar 1.2.840.1 [id number] Univers 00:00:00 00:00:00 isael Yu 40813.1.1 ity of [place] 3.412.2.7 [place] .3.524554 MD Marshall [facility] 2021-02-15 2021-02-15 Travel 1.2.840.1 1.2.069.289 [id number] Univers 00:00:00 00:00:00 01611.1.1 350.1.13.41 ity of 3.412.2.7 [place].3.698 [place] .3.8914[place] 084.8 MD Marshall [facility] 2021-02-14 2021-02-14 Outpatient FAREED SIMS RONEN MDA MDA [id number] 11:39:18 23:59:00 Timi willams 2021-02-14 2021-02-14 [facility] 1.2.840.1 [id number] Univers 11:39:18 23:59:00 Encounter C 62240.1.1 it y of 3.412.2.7 [place] .3.821202 MD [facility] [place] 2021-02-14 2021-02-14 Outpatient FAREED EVANS MDA [facility] [id number] 09:30:00 11:38:00 AMJEFF hoffman 2021-02-14 2021-02-14 [facility], 1.2.840.1 [id number] Univers 09:30:00 11:38:00 Encounter Truong 94797.1.1 it y of 3.412.2.7 [place] .3.595437 MD Marshall [facility] 2021-02-14 2021-02-14 Ancillary Cortez Barrios, 1.2.840.1 [id number] Univers 09:45:00 11:30:00 Procedure Noemi Kathleen 05492.1.1 it y of 3.412.2.7 [place] .3.066668 MD Marshall [facility] 2021-02-14 2021-02-14 Outpatient FAREED MEJIA MDA [facility] [id number] 09:33:47 09:33:47 NOEMI hoffman 2021-02-14 2021-02-14 Orders Bakari, 1.2.840.1 [id number] Univers 00:00:00 00:00:00 Only Joy 02012.1.1 ity of 3.412.2.7 [place] .3.812660 MD Marshall [facility] 2021-02-14 2021-02-14 Travel 1.2.840.1 1.2.542.297 [id number] Univers 00:00:00 00:00:00 11895.1.1 350.1.13.41 ity of 3.412.2.7 [place].3.698 [place] .3.523393 084.8 MD [facility] 2021-02-13 2021-02-13 Orders Mirian 1.2.840.1 [id number] [facility] 00:00:00 00:00:00 Only , Igor 69174.1.1 ity of 3.412.2.7 [place] .3.289556 .8 [facility] 2021-02-13 2021-02-13 [facility], 1.2.840.1 [id number] Univers 00:00:00 00:00:00 Kenny 42131.1.1 ity of 3.412.2.7 [place] .3.414550 .8 [facility] 2021-02-12 2021-02-12 Outpatient FAREED MEHTA MDA MDA [id number] 08:20:00 23:59:00 KENNY [facility] 2021-02-12 2021-02-12 [facility], 1.2.840.1 [id number] [facility] 08:20:00 23:59:00 [facility] Gladwin Kenny 63724.1.1 it y of 3.412.2.7 [place] .3.838410 .8 [facility] 2021-02-12 2021-02-12 Outpatient BETY VILLAFUERTE MDA MDA [id number] 09:50:16 10:52:32 [facility] 2021-02-12 2021-02-12 Follow-Up Bety Silva 1.2.840.1 [id number] [facility] 09:30:00 10:52:32 14067.1.1 ity of 3.412.2.7 [place] .3.370007 .8 [facility] 2021-02-12 2021-02-12 Outpatient FRIEDA CHAVEZ MDA MDA [id number] 10:40:28 10:40:28 [facility] 2021-02-12 2021-02-12 Travel 1.2.840.1 1.2.236.044 [id number] [facility] 00:00:00 00:00:00 33435.1.1 350.1.13.41 ity of 3.412.2.7 [place].3.698 [place] .3.323007 084.8 .8 [facility] 2021-02-12 2021-02-12 Refrusty Evans, 1.2.840.1 [id number] Univers 00:00:00 00:00:00 Truong 32036.1.1 ity of 3.412.2.7 [place] .3.307520 .8 [facility] 2021-02-09 2021-02-09 Documentat Jcaky, 1.2.840.1 [id number] Univers 00:00:00 00:00:00 isael Pyle 38299.1.1 ity of 3.412.2.7 [place] .3.267372 .8 [facility] 2021-02-08 2021-02-08 Outpatient QUINN CAMERON MDA MDA [id number] MD 23:59:00 23:59:00 Timi hoffman 2021-02-08 2021-02-08 [facility] Quinn Cameron 1.2.840.1 [id number] [facility] 23:59:00 23:59:00 Encounter 28405.1.1 it y of 3.412.2.7 [place] .3.844989 .8 [facility] 2021-02-07 2021-02-07 Outpatient FAREED GONZALEZ, MDA MDA [id number] 13:18:57 23:59:00 RANDALL hoffman 2021-02-07 2021-02-07 Outpatient FAREED SANDOVALJONELLE, GIOVANNA MDA [id number] 11:33:04 13:17:00 IBAN hoffman 2021-02-07 2021-02-07 Outpatient FAREED EVANS MDA MDA [id number] 09:00:00 11:32:00 TRUONG hoffman 2021-02-07 2021-02-07 Outpatient FAREED MEHTA MDA MDA [id number] 10:04:44 11:03:37 KENNY hoffman 2021-02-06 2021-02-06 Outpatient EL NATHAN, MDA MDA [id number] MD 15:33:00 23:59:00 AMJEFF Timi o n 2021-02-03 2021-02-03 Outpatient EL TYSON, MDA MDA [id number] MD 16:44:00 23:59:00 KENNY Timi o n 2021-02-01 2021-02-01 Outpatient EL NATHAN, MDA MDA [id number] MD 07:47:00 23:59:00 AMJEFF Timi o n 2021-01-09 2021-02-01 Inpatient UR TYSON, MDA Neurosurger [id number] MD 04:51:00 13:40:00 KENNY y Timi o n 2021-01-27 2021-01-27 Inpatient EL TYSON, MDA MDA [id number] MD 15:35:09 16:03:37 KENNY Timi o n 2021-01-27 2021-01-27 Inpatient EL TYSON, MDA MDA [id number] MD 05:41:18 05:48:53 KENNY Timi o n 2021-01-22 2021-01-22 Inpatient EL TYSON, MDA MDA [id number] MD 15:03:57 15:17:37 KENNY Timi o n 2021-01-22 2021-01-22 Inpatient EL TYSON, MDA MDA [id number] MD 09:05:19 09:09:22 KENNY Timi o n 2021-01-19 2021-01-19 Inpatient EL TYSON, MDA MDA [id number] MD 11:38:18 12:23:02 KENNY Timi o n 2021-01-19 2021-01-19 Inpatient EL TYSON, MDA MDA [id number] MD 09:20:43 09:50:12 KENNY Timi o n 2021-01-18 2021-01-18 Inpatient EL TYSON, MDA MDA [id number] MD 22:39:34 22:49:05 KENNY Timi o n 2021-01-18 2021-01-18 Inpatient EL TYSON, MDA MDA [id number] MD 07:49:05 07:58:07 KENNY Timi o n 2021-01-18 2021-01-18 Inpatient EL TYSON, MDA MDA [id number] MD 05:31:13 06:04:37 KENNY Sutherlanders o n 2021-01-16 2021-01-16 Inpatient TYSON, MDA MDA [id number] MD 12:00:21 12:15:04 KENNY Sutherlanders o n 2021-01-15 2021-01-15 Inpatient EL TYSON, MDA MDA [id number] MD 21:47:51 22:03:22 KENNY Sutherlanders o n 2021-01-15 2021-01-15 Inpatient EL TYSON, MDA MDA [id number] MD 18:55:24 19:22:57 KENNY Sutherlanders o n 2021-01-15 2021-01-15 Inpatient TYSON, MDA MDA [id number] MD 18:38:06 18:58:54 KENNY Sutherlanders o n 2021-01-15 2021-01-15 Inpatient TYSON, MDA MDA [id number] MD 14:41:45 16:33:30 EKNNY Sutherlanders o n 2021-01-15 2021-01-15 Inpatient TYSON, MDA MDA [id number] MD 05:27:03 05:50:43 KENNYALLI Sutherlanders o n 2021-01-14 2021-01-14 Inpatient TYSON, MDA MDA [id number] MD 22:58:15 23:26:38 KENNY Timi o n 2021-01-13 2021-01-13 Inpatient EL [facility], MDA MDA [id number] 19:23:18 20:44:15 YOSELIN Timi o n 2021-01-13 2021-01-13 Inpatient TYSON, MDA MDA [id number] MD 19:39:49 20:44:12 KENNY Timi o n 2020-12-25 2020-12-27 Outpatient ER PUDUVALLI, MDA Neuro-Oncol [id number] 19:29:00 16:15:00 CONNIE willams Timi o n 2020-12-22 2020-12-22 Outpatient EL MDA MDA [id number] MD 09:30:00 23:59:00 Timi o n 2020-12-20 2020-12-20 Outpatient EL MDA MDA [id number] MD 11:38:14 23:59:00 Timi o n 2020-12-20 2020-12-20 Outpatient EL VIRGIL, MDA MDA [id number] MD 13:28:22 13:28:22 WILLIAMS Timi o n 2020-12-20 2020-12-20 Outpatient EL TYSON, MDA MDA [id number] MD 11:59:02 13:27:27 KENNY Timi o n 2020-12-19 2020-12-19 Outpatient EL ANIVAL, MDA MDA [id number] MD 11:27:41 13:17:10 ROMELIA urbinao n 2020-12-07 2020-12-11 Inpatient EL TYSON, MDA Neurosurger [id number] MD 04:52:00 12:47:00 KENNY donaldson Timi o n 2020-12-07 2020-12-07 Inpatient EL MDA MDA [id number] MD 22:41:45 23:07:22 Timi o n 2020-12-06 2020-12-06 Outpatient EL MDA MDA [id number] MD 11:30:00 23:59:00 Timi o n 2020-12-06 2020-12-06 Outpatient EL BO, MDA MDA [id number] MD 11:03:27 13:43:42 [facility] Antonio so n 2020-12-06 2020-12-06 Outpatient EL TYSON, MDA MDA [id number] MD 09:34:03 13:12:38 KENNY Timi o n 2020-12-06 2020-12-06 Outpatient EL MDA MDA [id number] MD 11:54:07 12:26:29 Timi o n 2020-12-06 2020-12-06 Outpatient EL MDA MDA [id number] MD 08:59:06 11:29:00 Timi o n 2020-11-29 2020-11-29 Outpatient EL MDA MDA [id number] MD 11:41:09 11:41:09 Timi o n 2020-11-29 2020-11-29 Outpatient EL MDA MDA [id number] MD 11:40:39 11:40:39 Timi o n 2020-11-29 2020-11-29 Outpatient EL FRIEDA MARTÍNEZ MDA MDA [id number] MD 07:59:10 07:59:10 Timi o n 2020-11-25 2020-11-25 Outpatient EL MDA MDA [id number] MD 11:12:56 11:12:56 Timi o n 2020-11-22 2020-11-22 Outpatient EL MDA MDA [id number] MD 13:47:40 23:59:00 Timi o n 2020-11-22 2020-11-22 Outpatient EL TYSON, MDA MDA [id number] MD 12:21:22 13:44:47 KENNY Timi o n 2020-11-21 2020-11-21 Outpatient EL ANIVAL, MDA MDA [id number] MD 11:52:59 14:11:50 ROMELIA urbinao n 2020-11-21 2020-11-21 Outpatient EL MDA MDA [id number] MD 11:32:16 11:32:35 Timi o n 2020-11-20 2020-11-20 Emergency ER HARDIN, MDA Emergency [id number] MD 10:17:00 18:45:00 SETLUIS ALBERTO Timi o n 2020-10-16 2020-10-16 Outpatient EL MDA MDA [id number] MD 08:48:23 08:48:23 Timi o n 2020-10-16 2020-10-16 Outpatient EL MDA MDA [id number] MD 08:48:23 08:48:23 Timi o n 2020-10-16 2020-10-16 Outpatient EL MDA MDA [id number] MD 08:48:22 08:48:22 Timi o n 2020-10-16 2020-10-16 Outpatient EL MDA MDA [id number] MD 08:48:21 08:48:21 Timi o n 2020-10-16 2020-10-16 Outpatient EL MDA MDA [id number] MD 08:48:16 08:48:16 Timi o n Results Test Description Test Time Test Comments Results Result Comments Source Fractionated Bilirubin 2021-02-27 15:30:07 Test Item Value Reference Range Interpretation Comme nts Bili Total (test code = 0.3 mg/dL See_Comment Indo cyanine Green (ICG) may cause 5096) falsely elevate d bilirubin results. Total and direct bilirubin must not be measured from samples co ntaining indocyanine gre en. False elevation of total biliru bin can be seen in patients with I gG concentrations above 28 g/L. [ Automated message] The system [employer] generated this result transmit augustin reference range: <=1.2. T he reference range was not used to interpret this result as ernesto l/abnormal. Bili Direct (test code = See_Comment Ind ocyanine Green (ICG) may cause 5094) falsely elevate d bilirubin results. Total and direct bilirubin must not be measured from samples co ntaining indocyanine gre en. [Automated message] The sy stem which generated this result transmitted reference range : <=0.3. The reference range was not used to interpret this result as normal/abnormal . Bili Indirect (test code = See Note 0.0-0.9 U nable to calculate Indirect 5095) Bilirubin resul t due to some parameters are outside reportable range [facility] 2021-02-27 15:30:05 Test Item Value Reference Range Interpretation Comments eGFR-AA (test code 108 See_Comment Normal eG FR: >= 60 = 8062) mL/min/1.73 m2N ote: The eGFR is calculated u sing the CKD-EPI equatio n. The eGFR declines with a ge. eGFR <60 mL/min/1.73 m2 is considered as "decreased". This equation should only be used for patients 18 and older. According to e National Kidney Found[employer] on's Kidney Disease Outcome Quality Initiative (KDO QI) classification and 2012 Kidney Disease Improving Global Outcomes (KDIGO) Clinical Practi ce Guideline, the stage of CK D should be categorized bas ed on estimated GFR. Stage Description GFR mL/min/1.73 m21 Normal or h igh GFR >=902 Mildly decrease d GFR 60-893a Mildly to moder ately decreased GFR 4 5-593b Moderately to s everely decreased GFR 3 0-444 Severely decreased GFR 1 5-295 Kidney failure <15 [Au tomated message] The sy stem which generated this result transmitted ref erence range: >=60 mL/min/1.7 3 sq. m. The reference range was not used to interpret th is result as normal/abnormal . eGFR-NEO (test code 93 See_Comment Normal e GFR: >= 60 = 8063) mL/min/1.73 m2N ote: The eGFR is calculated u sing the CKD-EPI equatio n. The eGFR declines with a ge. eGFR <60 mL/min/1.73 m2 is considered as "decreased". This equation should only be used for patients 18 and older. According to th e National [employer] on's Kidney Disease Outcome Quality Initiative (KDO QI) classification and 2012 Kidney Disease Improving Global Outcomes (KDIGO) Clinical Practi ce Guideline, the stage of CK D should be categorized bas ed on estimated GFR. Stage Description GFR mL/min/1.73 m21 Normal or h igh GFR >=902 Mildly decrease d GFR 60-893a Mildly to moder ately decreased GFR 4 5-593b Moderately to s everely decreased GFR 30-444 Severely decrea sed GFR 15-295 Kidney failure <15 [Automated message] The sy stem which generated this result transmitted ref erence range: >=60 mL/min/1.7 3 sq. m. The reference range was not used to interpret th is result as normal/abnormal . [facility] HospitalAlkaline [id number] 15:30:04 Test Item Value Reference Range Interpretation Comments Alk Phos (test code = 4768) 73 U/L 40-129 [facility] HospitalAlbumin [id number] 15:30:02 Test Item Value Reference Range Interpretation Comments Albumin Lvl (test code 4.5 See_Comment [Aut omated message] The = 4763) system which ge nerated this result tra nsmitted reference range : 3.5 - 5.2 gm/dL. The refe rence range was not used to interpret this result as normal/abnormal . [facility] HospitalTotal [id number] 15:30:01 Test Item Value Reference Range Interpretation Comments Total Protein (test code = 7649) 6.9 g/dL 6.4-8.3 [facility] HospitalAspartate Aminotransferase 2021-02-27 15:30:00 Test Item Value Reference Range Interpretation Comments AST (test code = 17 U/L See_Comment [Automated message] The 4731) system which ge nerated this result transmit augustin reference range : <=40. The reference range was not used to interpr et this result as ernesto l/abnormal. [facility] HospitalCalcium [id number] 15:29:59 Test Item Value Reference Range Interpretation Comments Calcium Lvl (test code = 5258) 9.8 mg/dL 8.4-10.2 [facility] HospitalElectrolyte [id number] 15:29:58 Test Item Value Reference Range Interpretation Comments Sodium Lvl (test code = 140 See_Comment [Au tomated message] The 7348) system which ge nerated this result tra nsmitted reference range : 136 - 145 mEq/L. The reference range was not u sed to interpret this result as normal/abnormal . Potassium Lvl (test 4.4 See_Comment [Automa augustin message] The code = 6854) system which ge nerated this result tra nsmitted reference range : 3.5 - 5.1 mEq/L. The reference range was not u sed to interpret this result as normal/abnormal . Chloride (test code = 105 See_Comment [Auto mated message] The 5279) system which ge nerated this result tra nsmitted reference range : 98 - 107 mEq/L. The refe rence range was not u sed to interpret this result as normal/abnormal . CO2 (test code = 5227) 25 See_Comment [Aut omated message] The system which ge nerated this result tra nsmitted reference range : 22 - 29 mEq/L. The refe rence range was not u sed to interpret this result as normal/abnormal . Anion Gap (test code = 10 See_Comment [Aut omated message] The 9394) system which ge nerated this result tra nsmitted reference range : 4 - 14 mEq/L. The refe rence range was not u sed to interpret this result as normal/abnormal . [facility] HospitalALT2021-12-28 15:29:57 Test Item Value Reference Range Interpretation Comments ALT (test code = 17 U/L See_Comment [Automated message] The 2975) system which ge nerated this result transmit augustin reference range : <=41. The reference range was not used to interpr et this result as ernesto l/abnormal. [facility].Serum [id number] 15:29:56 Test Item Value Reference Range Interpretation Comments Creatinine (test code = 5399) 0.96 mg/dL 0.67-1.17 [facility] HospitalBUN2021-12-28 15:29:55 Test Item Value Reference Range Interpretation Comments BUN (test code = 5055) 7 mg/dL 6-23 [facility] HospitalGlucose [id number] 15:29:54 Test Item Value Reference Range Interpretation Comments Glucose Level (test 81 mg/dL 70-99 Effectiv e 09/27/15, the code = 5699) glucose referen ce intervals have been updated based o n [place] [employer] karl delines (Standards of M edical Care in Diabete s 2016. Diabetes Care 2 016; 39: S13-S22).Fastin g blood glucose:Normal: 70-99 mg/dLImpaired f asting glucose (increa sed risk for diabetes or pre-diabetes): 100-125 mg/dLDiabetes m ellitus: >/=126 mg/dL Ra ndom blood glucose:N ormal: 70-199 mg/dLNot e: Random glucose >100 mg /dL is associated with increased risk for diabetes [facility] HospitalDifferential2021-12-28 14:55:53 Test Item Value Reference Range Interpretation Comments Neutrophil % (test code = 41.4 % 42.0-66.0 L 6491) Lymphocyte % (test code = 40.8 % 24.0-44.0 6194) Monocyte % (test code = 13.6 % 2.0-7.0 H 6422) Eosinophil % (test code = 3.0 % 1.0-4.0 5520) Basophil % (test code = 0.6 % 0.0-1.0 5068) IGRE % (test code = 5958) 0.6 % 0.0-0.4 H IG RE % count includes Metamyelocytes, Myelocytes, and Promyelocytes. Neutrophil Abs (test code 0.70 K/uL 1.70-7.30 L = 6492) Lymphocyte Abs (test code 0.69 K/uL 1.00-4.80 L = 6195) Monocyte Abs (test code = 0.23 K/uL 0.08-0.70 6423) Eosinophil Abs (test code 0.05 K/uL 0.04-0.40 = 5521) Basophil Abs (test code = 0.01 K/uL 0.00-0.10 5069) IG Abs (test code = 5954) 0.01 K/uL 0.00-0.04 Lab Interpretation (test Abnormal code = 08517-5) [facility] [place].[id number] 14:55:44 Test Item Value Reference Range Interpretation Comments WBC (test code = 8034) 1.7 K/uL 4.0-11.0 L RBC (test code = 6932) 4.29 See_Comment L [Aut omated message] The system [employer] generated this result transmitted ref erence range: 4.50 - 6 .00 M/uL. The refer ence range was not u sed to interpret this result as normal/abnor mal. Hgb (test code = 5898) 12.6 See_Comment L [Aut omated message] The system [employer] generated this result transmitted ref erence range: 14.0 - 1 8.0 gm/dL. The refe rence range was not u sed to interpret this result as normal/abnor mal. Hct (test code = 5860) 38.7 % 40.0-54.0 L MCV (test code = 6222) 90 fL 82-98 MCH (test code = 6220) 29.4 pg 27.0-31.0 MCHC (test code = 6221) 32.6 See_Comment [Au tomated message] The system [employer] generated this result transmitted ref erence range: 31.0 - 3 6.0 gm/dL. The refe rence range was not u sed to interpret this result as normal/abnor mal. RDW-SD (test code = 42.2 fL 35.1-46.3 6972) RDW-CV (test code = 12.9 % 12.0-15.5 6971) Platelet count (test 233 K/uL 140-440 code = 6832) MPV (test code = 6282) 8.9 fL 4.0-10.4 INRBC (test code = 0.0 % See_Comment The INRBC (instrument 5974) NRBC) value ref lects the enumeration of nucleated red b lood cells contained in a 200uL sampleof whole blood analyzed by the instrument. Thi s value maydiffer from the NRBC value repo rted in a manual differential,wh ich is based on a 100 cell differential. [Automated mess age] The system [employer] generated this result transmitted ref erence range: <=0.0. T he reference range was not used to int erpret this result as normal/abnormal . Lab Interpretation Abnormal (test code = 38142-5) [facility] Chem 8 without Hemoglobin and [id number] 18:49:49 Test Item Value Reference Range Interpretation Comments POC NA (test code = 141 See_Comment [Automa augustin message] 31013-8) The system [employer] generated this result transmitted ref erence range: 138 - 14 6 mEq/L. The refe rence range was not u sed to interpret this result as normal/abnor mal. POC K (test code = 3.6 See_Comment Method de scription: 94673-4) The i-STAT is a n analyzer used f or in vitro quantific ation of various anal ytes in whole blood. The device uses a s oscar disposable cart ridge which contains microfabricated sensors, a calibration tommy ution, fluidics system , and a waste chamber . Each test cartridge contains chemic ally sensitive biose nsors on a Overwolf ip that are config ured to perform spec ific tests. The microfabricated sensors measure analyte concent ration by an electroch emical assay. [Automat ed message] The sy stem which generated this result transmit augustin reference range : 3.5 - 4.9 mEq/L. Th e reference range was not used to int erpret this result as normal/abnormal . POC CL (test code = 104 See_Comment [Automa augustin message] 2068-05) The system [facility] generated this result transmitted ref erence range: 98 - 109 mEq/L. The refe rence range was not u sed to interpret this result as normal/abnor mal. POC VTCO2 (test code 26 See_Comment [Autom ated message] = 2026-03) The system [facility] generated this result transmitted ref erence range: 24 - 29 mEq/L. The reference r chaparro was not used to interpret this result as normal/abnor mal. POC Anion Gap (test 16 mmol/L 10-20 code = 89792) POC BUN (test code = 8-26 L 6299-2) POC Crea (test code 0.9 mg/dL 0.6-1.3 Medicati ons, = 86633-7) especially hydroxyurea or supplements, barnes ch as ascorbate, can interfere with test results causing a falsely and significantly h igher result than exp ected. If a problem is suspected with a patient's resul t, a sample should b e sent to the laborato ry for confirmatory te sting. Method descript ion: The i-STAT is a n analyzer used f or in vitro quantific ation of various anal ytes in whole blood. The device uses a s oscar disposable cart ridge which contains microfabricated sensors, a calibration tommy ution, fluidics system , and a waste chamber . Each test cartridge contains chemic ally sensitive biose nsors on a Overwolf ip that are config ured to perform spec ific tests. The microfabricated sensors measure analyte concent ration by an electroch emical assay. POC eGFR-AA (test 117 See_Comment Normal eGF R >= 60 code = 70263-7) mL/min/1.73 m2 The eGFR is calcula augustin using the CKD-E PI equation. The e GFR declines with a ge. eGFR <60 mL/min /1.73 m2 is considere d as "decreased" Thi s equation should only be used for pat ients 18 and older. According to th e National Kidney Foundation's Ki dney Disease Outcome Quality Initiat binu (KDOQI) classification and 2012 Kidney Dis ease Improving Globa l Outcomes (KDIGO ) Clinical Practi ce Guideline, the stage of CKD should b e categorized bas ed on estimated GFR. Stage Description GFR mL/min/1.73 m21 Kidney damage w ith normal or high GFR >=902 Kidney da mage with mild decre ase in GFR 60-893a Mil d to moderate decrea se in GFR 45-593b Mod erate to severe decre ase in GFR 30-444 Sylvie re decrease in GFR 15-295 Kidney f ailure <15 (or dialysi s) [Automated mess age] The system treadalongic h generated this result transmitted ref erence range: >=60 mL/min/1.73 m2. The reference range was not used to int erpret this result as normal/abnormal . POC eGFR-NEO (test 101 See_Comment Normal eG FR >= 60 code = 02038-7) mL/min/1.73 m2 The eGFR is calcula augustin using the CKD-E PI equation. The e GFR declines with a ge. eGFR <60 mL/min /1.73 m2 is considere d as "decreased" Thi s equation should only be used for pat ients 18 and older. According to th e National Kidney Foundation's Ki dney Disease Outcome Quality Initiat binu (KDOQI) classification and 2012 Kidney Dis ease Improving Globa l Outcomes (KDIGO ) Clinical Practi ce Guideline, the stage of CKD should b e categorized bas ed on estimated GFR. Stage Description GFR mL/min/1.73 m21 Kidney damage w ith normal or high GFR >=902 Kidney da mage with mild decre ase in GFR 60-893a Mil d to moderate decrea se in GFR 45-593b Mod erate to severe decre ase in GFR 30-444 Sylvie re decrease in GFR 15-295 Kidney f ailure <15 (or dialysi s) [Automated mess age] The system [employer] generated this result transmitted ref erence range: >=60 mL/min/1.73 m2. The reference range was not used to int erpret this result as normal/abnormal . POC Glucose (test 73 mg/dL 70-99 code = 96907-7) POC Ion Ca (test 1.24 mmol/L 1.12-1.32 code = 50243-8) POC Sample Type Venous (test code = 6690) POC Clean Dev (test Yes code = 6672) Performing Lab (test MDA Main Main Ca mpus code = 29124) [facility] Cli nical Lab, [facility] [address], [place] [address]; Jukebox Operator: Natacha Adame MD Lab Interpretation Abnormal (test code = 68673-7) [facility] ([facility]-2)[id number] 18:48:32 Test Item Value Reference Range Interpretation Comments COVID19 Not Detected Not Detected (SARS-CoV-2) (test code = 76869-8) COVID19 SARS Inpatient Indication (test Admission code = 39140) Covid 19 Comment See Note The lisa S ARS-CoV-2 (test code = [place] [address]) use on the martha s Estephania System is a ta l-time RT-PCR assay in tended for the qualita tive detection of SARS-CoV-2 (COV ID-19) viral RNA in nasopharyngeal swabs from either individuals toby pected of COVID-19 by their healthcare prov ider or from any individual, inc luding individuals wit hout symptoms or oth er reasons to susp ect COVID-19. A fac t sheet for patie nts provided by the passenger car inspector (XGraph) can be rev iewed at: https://www.aka-aki networks .gov/m edia/207397/trino nload. A fact sheet fo Health Care pro viders is provided by the passenger car inspector (XGraph) and can be reviewed at: https://www.aka-aki networks .gov/m edia/212749/trino nload Results must be interpreted wit hin the context of all relevant clinic al and laboratory find ings and should not form the sole basis for a diagnosis or treatment decis ion. Positive result s do not rule out bacterial infec tion or co-infection with other viruses. Negative result s do not preclude SARS-CoV-2 infe ction and must be com bined with clinical observations, p atient history, and/or epidemiological information. Th is assay has been authorized by t [facility] for use only un chad Emergency Use Authorization ( EUA) in laboratories that have been CLIA-certified to perform moderate-comple xity and high-comple xity tests. The Microbiology Laboratory at [facility], CLIA Accreditation #[id number] and CAP Accreditation #[id number], verif ied the performance characteristics of this assay. Int ernal controls are us ed to monitor all sta ges of the test proces s. [facility] HospitalPhosphorus [id number] 18:37:30 Test Item Value Reference Range Interpretation Comments Phosphorus (test code = 6817) 3.6 mg/dL 2.5-4.5 [facility] HospitalMagnesium [id number] 18:37:20 Test Item Value Reference Range Interpretation Comments Magnesium (test code = 6359) 2.1 mg/dL 1.6-2.6 [facility] [id number] 18:34:21 Test Item Value Reference Range Interpretation Comments aPTT (test code = 32.7 See_Comment [Automate d message] The 6773) system which ge nerated this result transmit augustin reference range : 24.7 - 36.8 second(s). The reference range was not used to interpr et this result as ernesto l/abnormal. [facility] HospitalProthrombin Time with [id number] 18:34:20 Test Item Value Reference Range Interpretation Comments PT (test code = 6746) 13.3 See_Comment [Auto mated message] The system which ge nerated this result transmit augustin reference range : 11.5 - 13.9 second(s). The reference range was not used to interpr et this result as ernesto l/abnormal. INR (test code = 1.08 0.90-1.10 5973) [facility] HospitalPO [id number] 18:07:42 Test Item Value Reference Range Interpretation Comments POC VB pH (test 7.36 7.31-7.41 code = 6719) POC VB pCO2 (test 48 See_Comment [Automate d message] code = 6718) The system treadalongic h generated this result transmitted ref erence range: 41 - 51 mmHg. The reference r chaparro was not used to interpret this result as normal/abnor mal. POC VB pO2 (test 24 mmHg code = 6720) POC VB TCO2 (test 29 See_Comment [Automate d message] code = 2026-1) The system ich generated this result transmitted ref erence range: 24 - 29 mEq/L. The reference r chaparro was not used to interpret this result as normal/abnor mal. POC VB Bicarb 27 mmol/L 23-28 (test code = 46272-5) POC VB Base Ex 1 mmol/L -2-3 (test code = 1927-3) POC VB O2 Sat 40 % (test code = 2711-0) POC VB LAC (test 1.6 mmol/L 0.9-1.7 Method desc ription: code = 2519-7) The i-STAT is an analyzer used f or in vitro quantific ation of various anal ytes in whole blood. Th e device uses a s oscar disposable cart ridge which contains microfabricated sensors, a pradip bration solution, fluid ics system, and a w aste chamber. Each t est cartridge conta ins chemically sens itive biosensors on a silicon chip th at are configured to p erform specific tests. The microfabricated sensors measure analyte concent ration by an electroch emical assay. POC Sample Type Venous (test code = 6690) POC Clean Dev Yes (test code = 6672) Performing Lab [facility] (test code = [facility] [address]) Clinical Lab, [address], [place], [place] [address]; Jukebox Operator: Natacha Adame MD [facility] HospitalCalcium Ionized, [id number] 18:42:47 Test Item Value Reference Range Interpretation Comments V Ion Ca (test code 1.18 mmol/L 1.15-1.29 = 55230-6) GLENDY (test code = This lab cannot be GLENDY) scheduled at the following locations due to collection/proccessing restrictions:[facility]
--- NOTE | 2022-02-08 13:02 | RAD REPORT ---
EXAM DESCRIPTION: CT - Head Brain Wo Cont - 02/08/2022 12:54 pm CLINICAL HISTORY: numbness, right-sided weakness, history of glioblastoma removal COMPARISON: No comparisons TECHNIQUE: Axial 5 mm thick images of the head were obtained without IV contrast. All CT scans are performed using dose optimization technique as appropriate and may include automated exposure control or mA/KV adjustment according to patient size. FINDINGS: No intracranial hemorrhage, mass, edema or shift of mid-line structures. No acute cortical based infarction identifiable. Encephalomalacia changes are present in the lateral right occipital l obe presumed to be site of glioblastoma removal. No measurable remnant or recurrence of tumor identif iable in this region. There is no localized edema or mass effect. Patient has no significant atrophy or chronic ischemic change. The atrium and occipital horn of the right lateral ventricle is enlarged slightly due to the volume loss from tumor removal. . Mastoid air cells and visualized portions of the paranasal sinuses are clear. No acute bony findings. Findings telephoned to Jennifer Ray at 12:57 p.m. IMPRESSION: No intracranial hemorrhage is present. Postsurgical changes in the right lateral occipital lobe presumed to be site of GBM removal. No measu rable residual or recurrent tumor. No localized mass or edema in this region.
[2022-02-08 13:11] LABS: Absolute Lymphocytes (CBC) 1.3 K/uL (0.7-4.9); Hematocrit 45.4 % (39.6-49.0); Lymphocytes % 18.4 % (15.3-44.8); MCV 86.1 fL (80-100); MPV 7.5 fL (7.6-11.3); RBC Red Blood Cell Count 5.28 M/uL (4.33-5.43)
[2022-02-08 13:27] LABS: Albumin 4.6 g/dL (3.4-5.0); Bilirubin Total 0.6 mg/dL (0.2-1.0); Protein, Total 8.1 g/dL (6.4-8.2); Troponin High Sensitivity 3.6 pg/mL (<58.9)
--- NOTE | 2022-02-08 16:06 | ER ---
Nurse's Notes [facility] Name: Mino Torres Age: 51 yrs Sex: Male : 1970 Arrival Date: 02/08/2022 Time: 12:10 Bed 4 Private MD: Diagnosis: Transient cerebral ischemic attack, unspecified Presentation: 02/08 12:40 Chief complaint: Patient states: R sided numbness that began 2.5 hours prior to ss arrival. Pt reports that the symptoms resided upon arrival to ED. HX of glioblastoma. Coronavirus screen: Client indicates they have traveled out of the [place] in the last 14 days. Ebola Screen: Patient denies exposure to infectious person. Patient denies travel to an Ebola-affected area in the 21 days before illness onset. Initial Sepsis Screen: Does the patient meet any 2 criteria? No. Patient's initial sepsis screen is negative. Does the patient have a suspected source of infection? No. Patient's initial sepsis screen is negative. Risk Assessment: Do you want to hurt yourself or someone else? Patient reports no desire to harm self or others. Onset of symptoms was February 08, 2022 at 10:20. 12:40 Method Of Arrival: Ambulatory ss 12:40 Acuity: ROOPA 2 ss Historical: - Allergies: 12:53 No Known Allergies; ph - PMHx: 12:53 Hyperlipidemia; ph - Immunization history:: Client reports receiving the 2nd dose of the Covid vaccine. - Social history:: Smoking status: Patient denies any tobacco usage or history of. Screenin:06 Abuse screen: Denies threats or abuse. Denies injuries from another. Nutritional ld1 screening: No deficits noted. Nutritional screening: No deficits noted. Tuberculosis screening: No symptoms or risk factors identified. Fall Risk None identified. Assessment: 13:06 General: Appears in no apparent distress. comfortable, Behavior is calm, cooperative, ld1 appropriate for age. Pain: Denies pain. Neuro: Level of Consciousness is awake, alert, obeys commands, Oriented to person, place, time, situation. Cardiovascular: Capillary refill < 3 seconds Patient's skin is warm and dry. Respiratory: Airway is patent Respiratory effort is even, unlabored. GI: Abdomen is flat, non-distended. : No signs and/or symptoms were reported regarding the genitourinary system. EENT: No signs and/or symptoms were reported regarding the EENT system. Derm: No signs and/or symptoms reported regarding the dermatologic system. Musculoskeletal: No signs and/or symptoms reported regarding the musculoskeletal system. 18:03 Reassessment: Patient appears in no apparent distress at this time. Patient and/or ld1 family updated on plan of care and expected duration. Pain level reassessed. Patient is alert, oriented x 3, equal unlabored respirations, skin warm/dry/pink. 18:33 Reassessment: Patient appears in no apparent distress at this time. Patient and/or ld1 family updated on plan of care and expected duration. Pain level reassessed. Patient is alert, oriented x 3, equal unlabored respirations, skin warm/dry/pink. 19:00 Reassessment: Patient appears in no apparent distress at this time. Patient and/or jb4 family updated on plan of care and expected duration. Pain level reassessed. Patient is alert, oriented x 3, equal unlabored respirations, skin warm/dry/pink. 20:00 Reassessment: Patient appears in no apparent distress at this time. Patient and/or jb4 family updated on plan of care and expected duration. Pain level reassessed. Patient is alert, oriented x 3, equal unlabored respirations, skin warm/dry/pink. Vital Signs: 12:40 BP 132 / 84; Pulse 77; Resp 18; Pulse Ox 100% on R/A; Weight 84.37 kg; Height 5 ft. 7 ss in. (170.18 cm); Pain 0/10; 12:54 Temp 98.1(O); ss 13:06 BP 116 / 87; Pulse 81; Resp 18; Pulse Ox 99% on R/A; ld1 13:30 BP 116 / 87; Pulse 79; Resp 18; Pulse Ox 98% on R/A; ld1 15:14 BP 117 / 83; Pulse 75; Resp 18; Pulse Ox 99% on R/A; ld1 18:03 BP 117 / 88; Pulse 93; Resp 18; Pulse Ox 97% on R/A; ld1 18:33 BP 123 / 81; Pulse 64; Resp 18; Pulse Ox 98% on R/A; ld1 12:40 Body Mass Index 29.13 (84.37 kg, 170.18 cm) ED Course: 12:10 Patient arrived in ED. as 12:40 Luiz Jj MD is Attending Physician. rt 12:55 CT Head Brain wo Cont In Process Unspecified. EDMS 13:01 Triage completed. ss 13:02 Arm band placed on right wrist. ss 13:03 Patient has correct armband on for positive identification. Placed in gown. Bed in low mm9 position. Call light in reach. Side rails up X 1. Adult w/ patient. nuclear monitoring technician on. Pulse ox on. NIBP on. 13:03 CMP Sent. mm9 13:03 Troponin High Sensitivity Sent. mm9 13:03 CBC with Diff Sent. mm9 13:06 Anne Barajas, RN is Primary Nurse. ld1 13:06 No provider procedures requiring assistance completed. ld1 13:08 Initial lab(s) drawn, by me, sent to lab. EKG done, by ED staff, reviewed by Luiz Jj MD. Inserted saline lock: 20 gauge in left antecubital area, using aseptic technique. Blood collected. 16:04 Boone Montes MD is Hospitalizing Provider. rt 18:03 SARS RAPID Sent. ld1 20:13 Patient admitted, IV remains in place. vc1 Administered Medications: 18:03 Drug: Reglan (metoCLOPramide) 10 mg Route: IVP; Site: left antecubital; ld1 18:03 Drug: Benadryl (diphenhydrAMINE) 25 mg Route: IVP; Site: left antecubital; ld1 18:03 Drug: Tylenol 1000 mg Route: PO; ld1 Medication: 13:06 VIS not applicable for this client. ld1 Outcome: 16:05 Decision to Hospitalize by Provider. rt 20:11 Admitted to Tele accompanied by tech, via stretcher, room 404, Report called to vc1 Receiving nurse 20:11 Condition: good 20:13 Patient left the ED. vc1 Signatures: Dispatcher [employer] Poppy Lau Shelby, RN RN ss Hall, Patricia, RN RN Yoav Horton, JARAD ABRAHAM jb4 Anne Barajas, JARAD ly1 Fariha Ornelas RN RN [facility] Silvia Nicholson Ryan, MD MD rt
--- NOTE | 2022-02-08 16:06 | EDPHYS ---
Physician Documentation [facility] Name: Mino Torres Age: 51 yrs Sex: Male : 1970 Arrival Date: 02/08/2022 Time: 12:10 Bed 4 Private MD: ED Physician Luiz Jj HPI: 02/08 13:54 This 51 yrs old Male presents to ER via Ambulatory with complaints of Numbness. rt 13:54 The patient's problem is reported as paresthesias, in right upper extremity, in right rt lower extremity, in right side of face. Onset: The symptoms/episode began/occurred 2 hour(s) ago. Duration: This was a single incident. The symptoms are alleviated by nothing. The symptoms are aggravated by nothing. Associated signs and symptoms: The patient has no apparent associated signs or symptoms. Severity of symptoms: At their worst the symptoms were moderate in the emergency department the symptoms have resolved. Historical: - Allergies: 12:53 No Known Allergies; ph - PMHx: 12:53 Hyperlipidemia; ph - Immunization history:: Client reports receiving the 2nd dose of the Covid vaccine. - Social history:: Smoking status: Patient denies any tobacco usage or history of. ROS: 13:54 Constitutional: Negative for fever, chills, and weight loss, Eyes: Negative for injury, rt pain, redness, and discharge, ENT: Negative for injury, pain, and discharge, Cardiovascular: Negative for chest pain, palpitations, and edema, Respiratory: Negative for shortness of breath, cough, wheezing, and pleuritic chest pain, Abdomen/GI: Negative for abdominal pain, nausea, vomiting, diarrhea, and constipation, MS/Extremity: Negative for injury and deformity, Skin: Negative for injury, rash, and discoloration, Psych: Negative for depression, anxiety, suicide ideation, homicidal ideation, and hallucinations. 13:54 Neuro: Positive for tingling, Negative for weakness. Exam: 13:54 Radiologist reports: Post surgical changes rt 13:54 Constitutional: This is a well developed, well nourished patient who is awake, alert, and in no acute distress. Head/Face: Normocephalic, atraumatic. Eyes: Pupils equal round and reactive to light, extra-ocular motions intact. Lids and lashes normal. Conjunctiva and sclera are non-icteric and not injected. Cornea within normal limits. Periorbital areas with no swelling, redness, or edema. ENT: Nares patent. No nasal discharge, no septal abnormalities noted. Tympanic membranes are normal and external auditory canals are clear. Oropharynx with no redness, swelling, or masses, exudates, or evidence of obstruction, uvula midline. Mucous membranes moist. Chest/axilla: Normal chest wall appearance and motion. Nontender with no deformity. No lesions are appreciated. Cardiovascular: Regular rate and rhythm with a normal S1 and S2. No gallops, murmurs, or rubs. Normal PMI, no JVD. No pulse deficits. Respiratory: Lungs have equal breath sounds bilaterally, clear to auscultation and percussion. No rales, rhonchi or wheezes noted. No increased work of breathing, no retractions or nasal flaring. Abdomen/GI: Soft, non-tender, with normal bowel sounds. No distension or tympany. No guarding or rebound. No evidence of tenderness throughout. Back: No spinal tenderness. No costovertebral tenderness. Full range of motion. Skin: Warm, dry with normal turgor. Normal color with no rashes, no lesions, and no evidence of cellulitis. MS/ Extremity: Pulses equal, no cyanosis. Neurovascular intact. Full, normal range of motion. Neuro: Awake and alert, GCS 15, oriented to person, place, time, and situation. Cranial nerves II-XII grossly intact. Motor strength 5/5 in all extremities. Sensory grossly intact. Cerebellar exam normal. Normal gait. Psych: Awake, alert, with orientation to person, place and time. Behavior, mood, and affect are within normal limits. 13:54 ECG was reviewed by the Attending Physician. Vital Signs: 12:40 BP 132 / 84; Pulse 77; Resp 18; Pulse Ox 100% on R/A; Weight 84.37 kg; Height 5 ft. 7 ss in. (170.18 cm); Pain 0/10; 12:54 Temp 98.1(O); ss 13:06 BP 116 / 87; Pulse 81; Resp 18; Pulse Ox 99% on R/A; ld1 13:30 BP 116 / 87; Pulse 79; Resp 18; Pulse Ox 98% on R/A; ld1 15:14 BP 117 / 83; Pulse 75; Resp 18; Pulse Ox 99% on R/A; ld1 18:03 BP 117 / 88; Pulse 93; Resp 18; Pulse Ox 97% on R/A; ld1 18:33 BP 123 / 81; Pulse 64; Resp 18; Pulse Ox 98% on R/A; ld1 12:40 Body Mass Index 29.13 (84.37 kg, 170.18 cm) ss MDM: 12:50 Patient medically screened. rt 19:08 Differential diagnosis: CVA, TIA. Data reviewed: vital signs, nurses notes, lab test rt result(s), EKG, radiologic studies. ED course: Patient presents to the ED with an acute onset of right-sided numbness. The patient's symptoms have resolved upon arrival to the ED. This in combination with his known brain cancer with prior intracranial surgery contraindicates thrombolytic administration. Patient has no acute findings on his CT scan. Will be admitted for further care.. 02/08 12:47 Order name: CBC with Diff; Complete Time: 13:47 rt 02/08 12:47 Order name: CMP; Complete Time: 13:47 rt 02/08 12:47 Order name: CT Head Brain wo Cont; Complete Time: 13:04 rt 02/08 12:47 Order name: Troponin High Sensitivity; Complete Time: 13:47 rt 02/08 17:30 Order name: SARS RAPID eb 02/08 18:11 Order name: SARS-COV-2 Antigen Rapid EDCA 02/08 12:47 Order name: EKG; Complete Time: 12:47 rt 02/08 12:47 Order name: EKG - Nurse/Tech; Complete Time: 13:04 rt EC:54 Rate is 68 beats/min. Rhythm is regular, Normal Sinus Rhythm. QRS Chauvin is Normal. SD rt interval is normal. QRS interval is normal. QT interval is normal. No Q waves. T waves are Normal. No ST changes noted. Clinical impression: Normal ECG. Interpreted by me. Administered Medications: 18:03 Drug: Reglan (metoCLOPramide) 10 mg Route: IVP; Site: left antecubital; ld1 18:03 Drug: Benadryl (diphenhydrAMINE) 25 mg Route: IVP; Site: left antecubital; ld1 18:03 Drug: Tylenol 1000 mg Route: PO; ld1 Disposition Summary: 02/08/22 16:05 Hospitalization Ordered Hospitalization Status: Observation rt Provider: Boone Montes rt Location: Telemetry/MedSurg (observation) rt Condition: Stable rt Problem: new rt Symptoms: are resolved rt Bed/Room Type: Standard rt Room Assignment: 414(02/08/22 19:52) cg Diagnosis - Transient cerebral ischemic attack, unspecified rt Forms: - Medication Reconciliation Form rt - SBAR form rt Signatures: Dispatcher [employer] Alicia Mckeon RN RN Kerline Caban RN RN Heydi Juarez RN RN cg Anne Barajas RN RN ld1 Luiz Jj MD MD rt Corrections: (The following items were deleted from the chart) 19:52 16:05 rt cg
--- NOTE | 2022-02-08 17:31 | P.HP ---
Certification for Inpatient Patient admitted to: Inpatient With expected LOS: >2 Midnights Patient will require the following post-hospital care: None Practitioner: I am a practitioner with admitting privileges, knowledge of patient current condition, hospital course, and medical plan of care. Services: Services provided to patient in accordance with Admission requirements found in Title 42 Section 412.3 of the Code of Federal Regulations Patient History Date of Service: 02/08/22 Primary Care Provider: Laz Reason for admission: TIA History of Present Illness: Patient is a pleasant but unfortunate gentleman. With a history of Glioblastoma s/p removal from right occiptal lobe Today he had one hour of numbnes on his rig ht side. After an hour the patient feeling returned. The patient has not had any similar attacks in the past. He has regained all function. Allergies No Known Allergies Allergy (Verified 02/05/17 10:19) Home Medications: Omeprazole [Prilosec] 40 mg PO DAILY 02/05/17 Sertraline [Zoloft] 200 mg PO DAILY 02/05/17 Review of Systems 10-point ROS is otherwise unremarkable Neurological: Numbness (resolved) Physical Examination - Physical Exam General: Alert, In no apparent distress HEENT: Atraumatic, PERRLA, Mucous membr. moist/pink, EOMI, Sclerae nonicteric Neck: Supple, 2+ carotid pulse no bruit, No LAD, Without JVD or thyroid abnormality Respiratory: Clear to auscultation bilaterally, Normal air movement Cardiovascular: Regular rate/rhythm, Normal S1 S2 Gastrointestinal: Normal bowel sounds, No tenderness Musculoskeletal: No tenderness Integumentary: No rashes Neurological: Normal gait, Normal speech, Normal strength at 5/5 x4 extr, Normal tone, Normal affect Lymphatics: No axilla or inguinal lymphadenopathy - Studies Laboratory Data (last 24 hrs) 02/08/22 12:58: Sodium 140, Potassium 4.0, BUN 21 H, Creatinine 0.94, Glucose 98, Total Bilirubin 0.6, AST 14 L, ALT 22, Alkaline Phosphatase 92 02/08/22 12:58: WBC 6.90, Hgb 15.8, Hct 45.4, Plt Count 219 Assessment and Plan - Problems (Diagnosis) (1) TIA (transient ischemic attack) Current Visit: Yes Status: Acute Plan: will keep him for observations. Will start him on aspirin, statin and folic acid. Will keep him on neurochecks. (2) Hyperlipidemia Current Visit: Yes Status: Chronic Plan: start the patient on a statin and check the lipid profile Qualifiers: Hyperlipidemia type: mixed hyperlipidemia Qualified Code(s): E78.2 - Mixed hyperlipidemia (3) Glioblastoma Current Visit: Yes Status: Chronic Plan: Will have him follow up with his regular physicians Discharge Plan: Home Plan to discharge in: 24 Hours - Advance Directives Does patient have a Living Will: No Does patient have a Durable POA for Healthcare: No - Code Status/Comfort Care Code Status Assessed: Yes Code Status: Full Code Physician Review: Patient Assessed, Agree with Above Assessment and Plan Critical Care: No Time Spent Managing Pts Care (In Minutes): 45
[2022-02-08] MEDS ORDERED: METOCLOPRAMIDE 10 MG/2mL INJ ONE (17:53)
[2022-02-08] MEDS ORDERED: ACETAMINOPHEN 500 MG TAB ONE (17:53)
[2022-02-08] MEDS ORDERED: DIPHENHYDRAMINE 50 MG/ML VIAL ONE (17:53)
[2022-02-08 18:11] LABS: SARS-CoV-2 Antigen Rapid Res Negative (Negative)
[2022-02-08] MEDS ORDERED: ATORVASTATIN 40 MG TAB PO SCH (21:00)
[2022-02-08 21:11] LABS: Protime INR 1.13
[2022-02-08] MEDS ORDERED: IBUPROFEN 600 MG TAB PO PRN (23:51)
[2022-02-09 01:53] VITALS: BMI 28.6
[2022-02-09 05:56] LABS: Absolute Lymphocytes (CBC) 1.8 K/uL (0.7-4.9); Hematocrit 41.3 % (39.6-49.0); Lymphocytes % 29.7 % (15.3-44.8); MCV 86.6 fL (80-100); MPV 7.7 fL (7.6-11.3); RBC Red Blood Cell Count 4.78 M/uL (4.33-5.43)
[2022-02-09 06:21] LABS: Albumin 4.2 g/dL (3.4-5.0); Bilirubin Total 0.6 mg/dL (0.2-1.0); Potassium 3.9 mmol/L (3.5-5.1); Protein, Total 6.9 g/dL (6.4-8.2); Thyroid Stimulating Hormone 1.02 uIU/mL (0.358-3.740)
[2022-02-09] MEDS ORDERED: SERTRALINE HCL 100 MG TAB PO SCH (09:00)
[2022-02-09] MEDS ORDERED: PANTOPRAZOLE 40MG TABLET PO SCH (09:00)
[2022-02-09] MEDS ORDERED: ASPIRIN EC 81 MG TAB PO SCH (09:00)
[2022-02-09] MEDS ORDERED: FOLIC ACID 1 MG TABLET PO SCH (09:00)
--- NOTE | 2022-02-09 12:28 | P.DS ---
Admission Date: 02/08/22 Discharge Date: 02/09/22 Primary Care Provider: Laz Disposition: ROUTINE DISCHARGE Discharge Condition: GOOD Reason for Admission: TIA - Problems (1) TIA (transient ischemic attack) Current Visit: Yes Status: Acute (2) Hyperlipidemia Current Visit: Yes Status: Chronic Qualifiers: Hyperlipidemia type: mixed hyperlipidemia Qualified Code(s): E78.2 - Mixed hyperlipidemia (3) Glioblastoma Current Visit: Yes Status: Chronic Brief History of Present Illness: Patient is a pleasant but unfortunate gentleman. With a history of Glioblastoma s/p removal from right occiptal lobe Today he had one hour of numbnes on his right side. After an hour the patient feeling returned. The patient has not had any similar attacks in the past. He has regained all function. Hospital Course: Patient was admitted. Had no new symptoms. He has a headache this morning. This is normal for an acute brain injury. The patient has an MRI ordered for Mar 03. Has a Neurologist. Dr. Goodwin and Dr. Nesbitt he can follow up with them. Will start him on aspirin, folic acid and atorvastain In the intrest of protecting the brain. Vital Signs/Physical Exam: Temp Pulse Resp BP Pulse Ox 97.8 F 67 16 115/70 100 02/09/22 08:00 02/09/22 08:00 02/09/22 08:00 02/09/22 08:00 02/09/22 08:00 General: Alert, In no apparent distress HEENT: Atraumatic, PERRLA, EOMI Neck: Supple, JVD not distended Respiratory: Clear to auscultation bilaterally, Normal air movement Cardiovascular: Regular rate/rhythm, Normal S1 S2 Gastrointestinal: Normal bowel sounds, No tenderness Musculoskeletal: No tenderness Integumentary: No rashes Neurological: Normal speech, Normal tone, Normal affect Lymphatics: No axilla or inguinal lymphadenopathy Laboratory Data at Discharge: WBC 6.20 K/uL (4.3-10.9) 02/09/22 05:33 Hgb 14.2 g/dL (13.6-17.9) D 02/09/22 05:33 Hct 41.3 % (39.6-49.0) 02/09/22 05:33 Plt Count 201 K/uL (152-406) 02/09/22 05:33 PT 12.4 SECONDS (9.5-12.5) 02/08/22 20:28 INR 1.13 02/08/22 20:28 Sodium 140 mmol/L (136-145) 02/09/22 05:33 Potassium 3.9 mmol/L (3.5-5.1) 02/09/22 05:33 BUN 29 mg/dL (7-18) H 02/09/22 05:33 Creatinine 0.93 mg/dL (0.70-1.30) 02/09/22 05:33 Glucose 97 mg/dL (74-106) 02/09/22 05:33 Total Bilirubin 0.6 mg/dL (0.2-1.0) 02/09/22 05:33 AST 12 U/L (15-37) L 02/09/22 05:33 ALT 19 U/L (16-61) 02/09/22 05:33 Alkaline Phosphatase 81 U/L (45-117) 02/09/22 05:33 Triglycerides Cancelled 02/09/22 06:00 Cholesterol Cancelled 02/09/22 06:00 HDL Cholesterol Cancelled 02/09/22 06:00 Cholesterol/HDL Ratio Cancelled 02/09/22 06:00 Home Medications: Omeprazole [Prilosec] 40 mg PO DAILY 02/05/17 Sertraline [Zoloft] 200 mg PO DAILY 02/05/17 Aspirin [Aspirin EC 81 MG] 81 mg PO DAILY AFTER SUPPER 90 Days #90 tab 02/09/22 RX: Atorvastatin Calcium 40 mg PO DAILY AFTER SUPPER 90 Days #90 tab 02/09/22 RX: Folic Acid 1 mg PO DAILY 90 Days #90 tab 02/09/22 New Medications: Aspirin [Aspirin EC 81 MG] 81 mg PO DAILY AFTER SUPPER 90 Days #90 tab RX: Atorvastatin Calcium 40 mg PO DAILY AFTER SUPPER 90 Days #90 tab RX: Folic Acid 1 mg PO DAILY 90 Days #90 tab Diet: Regular Activity: Ad manjinder Followup: Karthik Messina MD [Primary Care Provider] - Time spent managing pt's care (in minutes): 30
[2022-02-09 13:17] VITALS: BP 120/67; TEMP 97.9
[2022-02-09 13:36] VITALS: O2SAT 98
[2022-02-09] MEDS ORDERED: ENOXAPARIN 40 MG/0.4 ML SQ SCH (17:00)
--- NOTE | 2022-02-11 15:06 | EKG ---
Test Date: 2022-02-08 Test Time: 13:08:18 Rollout Manager: GEORGE MEASUREMENT RESULTS: Intervals: Rate: 68 ME: 150 QRSD: 98 QT: 392 QTc: 416 [place]: P: 48 ME: 150 QRS: 23 T: 24 INTERPRETIVE STATEMENTS: Normal sinus rhythm Normal ECG Compared to ECG 02/05/2017 10:25:32 No significant changes Electronically Signed On 02-11-22 14:58:53 PATIENT SERVICE REP by Gio Reagan
== END 2022-02-09 13:47 | disposition home or self-care (01) ==
LOC: ER 12:00 → ERHOLD 15:23 → 4TH 19:55
PROVIDERS: ADMIT Internal Medicine; ATTEND Internal Medicine
DX: G45.9 Transient cerebral ischemic attack, unspecified (principal); R20.0 Anesthesia of skin; E78.2 Mixed hyperlipidemia; Z85.841 Personal history of malignant neoplasm of brain; Z98.890 Other specified postprocedural states; Z20.822 Contact with and (suspected) exposure to COVID-19
CPT/HCPCS: 85025 ×2; 36415; 85610; 80061; 84443; 84484; 80053 ×2; 70450; 96375; 96374; 99285; 87811; J2765; J1200; 93005; G0378